=== PATIENT | female | born 1985 | race Caucasian/White ===

== ENCOUNTER 2022-05-20 20:16 | Emergency (ER) | payer BC, SELFPAY ==
[2022-05-20 20:20] VITALS: BP 177/86; PULSE 91; RESP 20; TEMP 36.5; O2SAT 100
--- NOTE | 2022-05-21 00:48 | ED.GENADULT ---
HPI - General Adult General Chief complaint: Unspecified Stated complaint: allergin test today, arm swelling/pain Time Seen by Provider: 05/21/22 00:35 Source: patient Mode of arrival: ambulatory Limitations: no limitations History of Present Illness HPI narrative: This is a 37-year-old female that presents to the emergency department for redness and swelling to her right arm. Reports she had an allergy shot in the arm around 12:00 this afternoon. The arm is painful, red and swollen. Denies fevers. Related Data Allergies Allergy/AdvReac Type Severity Reaction Status Date / Time No Known Allergies Allergy Verified 05/20/22 20:22 Review of Systems Review of Systems: CONSTITUTIONAL: Denies fever SKIN: Reports redness All systems reviewed & are unremarkable except as noted in HPI and below PMFSH Past Medical History Medical History (Updated 05/21/22 @ 00:52 by April Early PA-C) History of environmental allergies Family History Family History (Updated 07/23/16 @ 14:44 by DOCTOR UNKNOWN) Father Hypertension Family history of diabetes mellitus in first degree relative Mother Hypertension Sibling Patient's sister is in good health Grandparent Family history of lupus erythematosus Other Family history of liver disease Social History Social History Smoking status: Never smoker Alcohol intake: current Exam Narrative: GENERAL: Well-appearing, well-nourished, and in no acute distress. HEAD: Normocephalic, atraumatic. EYES: EOMI. EXTREMITIES: Normal range of motion. Right upper arm around the area of allergy shot with moderate edema and erythema. No lymphangitic streaking. Normal radial pulse SKIN: Warm, dry, no rash. NEURO: No focal deficits. Alert and oriented x3. PSYCH: Normal mood and affect Course Vital Signs Vital signs: Vital Signs Temperature 97.7 F 05/20/22 20:20 Pulse Rate 91 05/20/22 20:20 Respiratory Rate 20 05/20/22 20:20 Blood Pressure 177/86 H 05/20/22 20:20 Pulse Oximetry 100 05/20/22 20:20 Oxygen Delivery Room Air 05/20/22 20:20 Temperature 97.7 F 05/20/22 20:20 Pulse Rate 91 05/20/22 20:20 Respiratory Rate 20 05/20/22 20:20 Blood Pressure 177/86 H 05/20/22 20:20 Pulse Oximetry 100 05/20/22 20:20 Oxygen Delivery Room Air 05/20/22 20:20 Medical Decision Making MDM Narrative Medical decision making narrative: Patient presents to the emergency department for right arm redness and swelling after receiving what she reports was another patient's allergy shot. She does have moderate redness and swelling of the area. We will give patient a dose of Decadron. We will also start patient on an antibiotic. 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 She was given warnings to return to the ER Vital Signs Vital Signs: Vital Signs Temperature 97.7 F 05/20/22 20:20 Pulse Rate 91 05/20/22 20:20 Respiratory Rate 20 05/20/22 20:20 Blood Pressure 177/86 H 05/20/22 20:20 Pulse Oximetry 100 05/20/22 20:20 Oxygen Delivery Room Air 05/20/22 20:20 Temperature 97.7 F 05/20/22 20:20 Pulse Rate 91 05/20/22 20:20 Respiratory Rate 20 05/20/22 20:20 Blood Pressure 177/86 H 05/20/22 20:20 Pulse Oximetry 100 05/20/22 20:20 Oxygen Delivery Room Air 05/20/22 20:20 Critical Care Time Critical Care Time Critical Care Time: No Discharge Plan Discharge Clinical Impression: Allergic reaction Qualifiers: Encounter type: initial encounter Qualified Code(s): T78.40XA - Allergy, unspecified, initial encounter Patient Disposition: Home, Self-Care Condition: Stable Instructions: Antibiotic Form, Allergies (ED) Additional Instructions: Return to the emergency department if you experience fever, worsening redness and swelling of your arm, or any other symptoms that are concerning to you Take a Pepcid and Claritin daily. Benadryl as needed for severe itching. Take oral antib
[2022-05-21 00:54] VITALS: BP 146/89; PULSE 78; RESP 18; O2SAT 100
[2022-05-21] MEDS: HYDROcodone/acetaminophen (*CRX) 5-325 MG TABLET 1 TAB PO (01:08)
== END 2022-05-21 01:40 | disposition home or self-care (01) ==
PROVIDERS: Emergency Provider Emergency Medicine
DX: T78.40XA Allergy, unspecified, initial encounter (principal)
CPT/HCPCS: 96372; 99283; A9270; J1100

== ENCOUNTER 2025-02-08 07:50 | Outpatient (CLI) | payer BC, SELFPAY ==
--- OUTSIDE RECORDS SUMMARY | 2025-02-08 07:58 | XMS_ITS | Clinical Summary ---
Author Organization [facility] Address [address] [place] [address] Care Team Providers Care Hr Analyst Name Role Phone Carey Collier Primary Care Pr ovid Source Comments [facility],non-owned Affiliates and Associated Physician Practices is amultiple site organization consisting of ambulatory clinics and hospital sitesin [place], [place], [place] and [place]. This disclosure is being madepursuant to the Care Everywhere program and may not contain all information available regarding this patient. Last updated 18.[facility] Allergies No known active allergies Medications * Be aware that medications may not be up to date on this document. Alwaysverify current medications with the patient. Cetirizine HCl (ZYRTEC PO) Take 10 mg by mouth once daily Active clobetasol (Temovate) 0.05 % solution APPLY TO AFFECTED AREAS OF SCALP ONE TO TWO TIMES DAILY FOR UP TO 2 CONSECUTIVE WEEKS TAKE A SMALL BREAK THEN REPEAT NECESSARY 5 Active buPROPion XL 24hr (Wellbutrin-XL ) 150 MG tablet Take 1 (one) tablet by mouth once daily Active spironolactone (Aldactone) 100 MG tablet Take 1 (one) tablet by mouth once daily Active Tirzepatide (Mounjaro) 7.5 MG/0.5ML SOPN INJECT 1 SYRINGE SUBCUTANEOUSLY ONCE A WEEK 4 Active MAGNESIUM PO Take 2 tablets by mouth once daily Active vitamin ( 19) 29-1 MG TABS Take 1 (one) tablet by mouth once daily Active aspirin-acetam inophen-caffei ne 250-250-65 MG tablet Take 1 (one) tablet by mouth every 4 hours as needed for Headache Active norethindrone 0.35 MG tablet Take 1 (one) tablet by mouth once daily Active Encounters Date Type Department Care Team Description 12/03/2024 Orders Only [facility] [address] [place] [id number] Aravind Jennings MD Elevated bilirubin ; Hemangioma, unspecified site 11/30/2024 6:52 PM CDT - 11/30/2024 11:59 PM CDT Hospital Encounter [facility] - MRI [address] [place] [address] Discharge Disposition: Home or Self Care 11/18/2024 Travel 11/12/2024 Orders Only [facility] [address] [place] [address] Aravind Jennings MD Elevated bilirubin 11/12/[address] [facility] [address] [address] Aravind Jennings MD Results from Last 3 Months Social History Tobacco Use Types Packs/Day Years Used Date Smoking Tobacco: Never Smokeless Tobacco: Never Tobacco Cessation:Counseling Given: Not Answered PHQ-2 Answer Date Recorded Patient Health Questionnaire-2 Score 0 10/26/2024 Hunger Vital Sign Answer Date Recorded Within the past 12 months, y ou worried that your food would run out before you got the money to buy more. Never true 10/26/19 25 Within the past 12 months, t he food you bought just didn't last and you didn't have money to get more. Never true 10/26/2024 Comments No Sex and Gender Information Value Date Recorded Sex Assigned at Not on file Legal Sex Female 9:44 AM ELIGIBILITY SUPERVISOR Gender Identity Not on file Sexual Orientation Not on file Last Filed Vital Signs Vital Sign Reading Time Taken Comments Blood Pressure 122/68 10/26/2024 10:53 AM ELIGIBILITY SUPERVISOR Pulse 77 10/26/2024 10:53 AM ELIGIBILITY SUPERVISOR Temperature 36.7 C (98.1 F) 10/26/2024 10:53 AM ELIGIBILITY SUPERVISOR Respiratory Rate 16 10/15/2019 3:36 PM ELIGIBILITY SUPERVISOR Oxygen Saturation 100% 10/26/2024 10:53 AM ELIGIBILITY SUPERVISOR Inhaled Oxygen Concentration - - Weight 75.1 kg (165 lb 8 oz) 10/26/2024 10:53 AM ELIGIBILITY SUPERVISOR Height 157.5 cm (5' 2 ) 10/26/2024 10:53 AM ELIGIBILITY SUPERVISOR Body Mass Index 30.27 10/26/2024 10:53 AM ELIGIBILITY SUPERVISOR Plan of Treatment Upcoming Encounters Date Type Department Care Team (Late st Contact Info) Description 10/27/2025 3:00 PM ELIGIBILITY SUPERVISOR Documentation [facility] [address] [address] 10/27/2025 3:10 PM ELIGIBILITY SUPERVISOR Office Visit [address] [address] Aravind Jennings MD [address] [address] Health Maintenance Due Date Last Done Comments PAP SMEAR 1985 HIV SCREENING 02/16/2000 HEPATITIS C SCREENING 02/11/2003 DTAP/TDAP/TD VACCINES (1 - Tdap) 02/16/2004 HEPATITIS B VACCINE (1 of 3 - 19+ 3-dose series) 02/16/2004 COVID-19 VACCINE (1 - 2023- season) 2024 INFLUENZA VACCINE (Season Ended) 2025 09/06/2022, 07/19/2020, 06/22/2019, Additional history exists ZOSTER VACCINE (1 of 2) 2035 DEPRESSION SCREENING Completed 10/26/2024 HIB VACCINE Aged Out No longer eligi ble based on patient's age to complete this topic HPV VACCINE Aged Out No longer eligi ble based on patient's age to complete this topic MENINGOCOCCAL (Group B) VACCINE SHARED DECISION-MAKING Aged Out No longer eligible based on patient's age to complete this topic MENINGOCOCCAL GROUPS A/C/Y/W VACCINE Aged Out No longer eligible based on patient's age to complete this topic PNEUMOCOCCAL VACCINE Aged Out No long er eligible based on patient's age to complete this topic Procedures Procedure Name Priority Date/Time Associated Diagnosis Comments MRI ABDOMEN WWO CONTRAST Routine 11/30/2024 8:14 PM CDT Elevated bilirubin from Last 3 Months Results * MRI Abdomen Wwo Contrast (11/30/2024 8:14 PM CDT) Anatomical Region Laterality Modality Abdomen Magnetic Resonan ce 12/01/2024 9:11 AM CDT Impressions 12/01/2024 10:19 AM CDT IMPRESSION: 3.6 cm LOBULATED MASS WITHIN THE HEPATIC DOME HAS SIGNAL CHARACTERISTICS MOST COMPATIBLE WITH A HEMANGIOMA. ONE-TIME MRI FOLLOW-UP IN 6-9 MONTHS IS RECOMMENDED TO ENSURE SIZE STABILITY. IF THE LESION IS STABLE AT THAT TIME, NO FURTHER FOLLOW-UP WOULD BE WARRANTED. NO MR FINDINGS IDENTIFIED TO EXPLAIN THE PATIENT'S HYPERBILIRUBINEMIA. Edited by Marline Louis on 12/01/2024 9:36 AM > Interpreting Provider: Jennifer Shepard MD on 12/01/2024 10:19 AM Narrative 12/01/2024 10:19 AM CDT PROCEDURE: MRI ABDOMEN WWO CONTRAST DATE/TIME OF EXAM: 11/30/2024 8:40 PM CLINICAL INFORMATION: None relevant/not provided if blank. Indication: R17: Unspecified jaundice. Elevated bilirubin. Indeterminate liver mass. COMPARISON: None available. TECHNIQUE: Multiplanar, multisequence MR imaging of the abdomen before and following uneventful administration of intravenous contrast according to standard contrast-enhanced protocol. CONTRAST: GADOXETATE DISODIUM 0.25 MMOL/ML IV SOLN: 10 mL FINDINGS: 2.6 x 3.6 x 2.3 cm lobulated mass involving the hepatic dome at the junction of segments 7 and 8 (series 601 image 33). Lesion exhibits T2 hyperintensity and precontrast T1 hypointensity. There is no diffusion restriction and T2 shine through is noted within the lesion on the ADC map. Following the administration of intravenous gadolinium, there is initial arterial phase mild peripheral nodular enhancement at the anterosuperior margin of the lesion with slightly greater enhancement at 3 minutes. There is washout of contrast media significantly greater than hepatic parenchyma at the 20 minute hepatobiliary phase. The signal characteristics are consistent with a hemangioma. No other mass lesions identified within the liver. Liver normal in size. No hepatic steatosis. Hepatic vasculature widely patent. No bile duct dilatation. Small 4 mm nonenhancing fluid signal lesion within the posterior cortex of the midpole of the right kidney compatible with a simple cyst. This does not require further follow-up. Bilateral kidneys otherwise within normal limits. Signal and morphology of the gallbladder, adrenal glands, pancreas, and spleen are within normal limits. Pancreatic duct normal in diameter. Small and large bowel loops normal in caliber. No sites of bowel wall thickening. No pathologically enlarged lymph nodes. No abnormal sites of marrow signal replacement. Procedure Note Jennifer Shepard MD - 12/01/2024 PROCEDURE: MRI ABDOMEN WWO CONTRAST DATE/TIME OF EXAM: 11/30/2024 8:40 PM CLINICAL INFORMATION: None relevant/not provided if blank. Indication: R17: Unspecified jaundice. Elevated bilirubin. Indeterminate liver mass. COMPARISON: None available. TECHNIQUE: Multiplanar, multisequence MR imaging of the abdomen before andfollowing uneventful administration of intravenous contrast according to standard contrast-enhanced protocol. CONTRAST: GADOXETATE DISODIUM 0.25 MMOL/ML IV SOLN: 10 mL FINDINGS: 2.6 x 3.6 x 2.3 cm lobulated mass involving the hepatic dome at the junction of segments 7 and 8 (series 601 image 33). Lesion exhibits T2 hyperintensity and precontrast T1 hypointensity. There is no diffusion restriction and T2 shine through is noted within the lesion on the ADCmap. Following the administration of intravenous gadolinium, there is initial arterial phase mild peripheral nodular enhancement at the anterosuperior margin of the lesion with slightly greater enhancement at 3 minutes.There is washout of contrast media significantly greater than hepaticparenchyma at the 20 minute hepatobiliary phase. The signal characteristics are consistent with a hemangioma. No other mass lesions identified within the liver. Liver normal in size.No hepatic steatosis. Hepatic vasculature widely patent. No bile duct dilatation. Small 4 mm nonenhancing fluid signal lesion within the posterior cortexof the midpole of the right kidney compatible with a simple cyst. This does not require further follow-up. Bilateral kidneys otherwise within normal limits. Signal and morphology of the gallbladder, adrenal glands, pancreas, and spleen are within normal limits. Pancreatic duct normal in diameter. Small and large bowel loops normal in caliber. No sites of bowel wall thickening. No pathologically enlarged lymph nodes. No abnormal sites of marrow signal replacement. IMPRESSION: 3.6 cm LOBULATED MASS WITHIN THE HEPATIC DOME HAS SIGNAL CHARACTERISTICS MOST COMPATIBLE WITH A HEMANGIOMA. ONE-TIME MRI FOLLOW-UP IN 6-9 MONTHSIS RECOMMENDED TO ENSURE SIZE STABILITY. IF THE LESION IS STABLE AT THATTIME, NO FURTHER FOLLOW-UP WOULD BE WARRANTED. NO MR FINDINGS IDENTIFIED TO EXPLAIN THE PATIENT'S HYPERBILIRUBINEMIA. Edited by Marline Louis on 12/01/2024 9:36 AM > Interpreting Provider: Jennifer Shepard MD on 12/01/2024 10:19 AM us Aravind Jennings MD MR ORDERABLES Final Result from Last 3 Months Insurance ANTHEM ANTHEM Care Teams Hr Analyst Relationship Specialty Start Date End Date Carey Collier PA [address] [place] [id number] PCP - General Physician Card Assembler 10/15/19
--- OUTSIDE RECORDS SUMMARY | 2025-02-08 07:58 | XMS_ITS | CONTINUITY OF CARE DOCUMENT ---
Author Name dora john Address Unknown Organization [facility] Address [address] [place] [address] Phone [phone] Care Team Providers Care Golf Professional Name Role Phone Jneny Chapa MD Unavailable Jenny Chapa MD Unavailable [phone] INSURANCE PROVIDERS Payer name Policy type / Coverage type Angie red democrat ID [facility] [id number] Other [id number]
--- OUTSIDE RECORDS SUMMARY | 2025-02-08 07:59 | XMS_ITS | Patient Health Record ---
Author Organization [facility] ([address]) Address [address] [place] [address] Care Team Providers Care Industrial Sales Manager Name Role Phone Jayla Petty Unavailable [phone] [employer], Provider Unavailable Unavailab le Allergies No Known Allergies Reason For Referral No Information Medications Medication SIG (Take, Route, Frequency, Duration) Notes Start Date End Date Status AUVI -Q 0.3 mg as directed intramuscularly once for 30 day(s) Active ZYRTEC 10 mg 1 tab(s) orally once a day Active SIT (TRADITIONAL) VARIABLE PER SCHEDULE SC PER SCHEDULE for TO BE DETERMINED *Please review for potential replacement for e-prescription and drug interaction check* Active Auvi-Q 0.3 MG/0.3ML as directed intramuscularly once for 30 day(s) Active ZyrTEC Allergy 10 MG 1 tab(s) orally once a day Active Immunizations Vaccine Route Administration Date Status Comme nts NOC Influenza-Fluzone Unknown 07/19/2020 Administered Social History Tobacco Use: Social History Observation Description Date Details (start date - stop date) Never Smoker NA - NA Smoking Smart Form: Question Answer Notes Are you a: never smoker Problems Problem Type SNOMED Code ICD Code Onset Dates Problem Status W/U Status Risk Notes Problem Chronic allergic conjunctivitis (91576109) Other chronic allergic conjunctivitis (H10.45) Active confirmed Problem Allergic rhinitis caused by pollen (disorder) (90549719) Allergic rhinitis due to pollen (J30.1) Active confirmed Problem Allergic rhinitis caused by animal hair and dander (466069196994166) Allergic rhinitis due to animal (cat) (dog) hair and dander (J30.81) Active confirmed Problem Allergic rhinitis (93416411) Other allergic rhinitis (J30.89) Active confirmed Problem Chronic rhinitis (52736005) Chronic rhinitis (J31.0) Active confirmed Problem Mild intermittent asthma (629579739) Mild intermittent asthma, uncomplicated (J45.20) Active confirmed Problem Uncomplicated mild persistent asthma (056477115) Mild persistent asthma, uncomplicated (J45.30) Active confirmed Problem Uncomplicated moderate persistent asthma (206357810) Moderate persistent asthma, uncomplicated (J45.40) Active confirmed Problem Uncomplicated severe persistent asthma (685019543) Severe persistent asthma, uncomplicated (J45.50) Active confirmed Problem Allergic rhinitis caused by pollen (disorder) (40669374) Allergic rhinitis due to pollen (J30.1) Active confirmed Problem Allergic rhinitis caused by animal hair and dander (310753923948959) Allergic rhinitis due to animal (cat) (dog) hair and dander (J30.81) Active confirmed Problem Allergic rhinitis (38989325) Other allergic rhinitis (J30.89) Active confirmed Problem Chronic allergic conjunctivitis (30989687) Other chronic allergic conjunctivitis (H10.45) Active confirmed Encounters Encounter Location Date Provider Diagnosis [address] [address] 03/06/2024 Provider Ashley Allergic rhinitis due to pollen J30.1 Assessments Encounter Date Diagnosis (ICD Code) Assessment Notes Treatment Notes Treatment Clinical Notes Section Notes 03/06/2024 Allergic rhinitis due to pollen (ICD-10 - J30.1) Plan Of Treatment No Information Insurance Providers Payer Name Payer Address Payer Phone Subscriber Number Group Number Insured Name Patient Relationship to Insured Coverage Start Date Coverage End Date [facility] [id number] [place] [address] [id number] Meagan Ricks Self - patient is the insured Medical (General) History Medical History History ICD Code Allergic rhinitis due to pollen J30.1 Surgical History Surgery Date(Month/Year) tonsillectomy
--- OUTSIDE RECORDS SUMMARY | 2025-02-08 07:59 | XMS_ITS | Clinical Summary ---
Author Organization [facility] Address [address] [place] [phone] Care Team Providers Care Cocoa Press Operator Name Role Phone Juankedar Carey OSHEA Primary Care Pr ovider Allergies No known active allergies Medications fluticasone propionate (FLONASE) 50 mcg/actuation nasal spray Administer 2 sprays into affected nostril(s) daily 9 Active meclizine (ANTIVERT) 25 mg tablet Take 25 mg by mouth 2 times daily 9 Active cetirizine (ZyrTEC) 10 mg tablet Take by mouth Active Active Problems Problem Noted Date Diagnosed Date Vestibular migraine 08/16/2019 Sensory hearing loss 06/24/2014 Medical History Medical History Date Comments Vertigo Seasonal allergies Family History Medical History Relation Name Comments Ovarian cancer Mother Ovarian cance r - (Added by TW Conv) Relation Name Status Comments Mother Social History Tobacco Use Types Packs/Day Years Used Date Smoking Tobacco: Never Smokeless Tobacco: Never Alcohol Use Standard Drinks/Week Comments Yes 0 (1 standard drink = 0.6 oz pur e alcohol) Personal Safety Answer Date Recorded Getting School Help Needed Not on file 12/04 Comments Unknown Sex and Gender Information Value Date Recorded Sex Assigned at Not on file Legal Sex Female 6:52 AM FISH PITCHER Gender Identity Not on file Sexual Orientation Not on file Obstetrics History Last Filed Vital Signs Vital Sign Reading Time Taken Comments Blood Pressure 118/77 08/07/2018 3:25 PM FISH PITCHER Pulse 70 08/07/2018 3:25 PM FISH PITCHER Temperature 37.1 C (98.7 F) 08/07/2018 11:44 AM FISH PITCHER Respiratory Rate 20 08/07/2018 3:25 PM FISH PITCHER Oxygen Saturation 100% 08/07/2018 11:44 AM FISH PITCHER Inhaled Oxygen Concentration - - Weight 90.7 kg (200 lb) 08/07/2018 11:44 AM FISH PITCHER Height 160 cm (5' 3 ) 08/07/2018 11:44 AM FISH PITCHER Body Mass Index 35.43 08/07/2018 11:44 AM FISH PITCHER Plan of Treatment Not on file Insurance [employer] Care Teams Cocoa Press Operator Relationship Specialty Start Date End Date Carey Ellison PA PCP - General Physician Goat Driver 08/12/19
--- OUTSIDE RECORDS SUMMARY | 2025-02-08 07:59 | XMS_ITS | Encounter Summary ---
Author Organization [facility] Address [address] [place] [address] Care Team Providers Care Street Photographer Name Role Phone Unavailable Primary Care Provider Unavailabl e Encounter Details Date Type Department Care Team (Late st Contact Info) Description 10/03/2007 Outpatient Historical [facility], Authorized P NO ADDRESS ON FILE Daysi Okeefe Jr., MD NO ADDRESS ON FILE Social History Tobacco Use Types Packs/Day Years Used Date Smoking Tobacco: Never Assessed Comments Unknown Sex and Gender Information Value Date Recorded Sex Assigned at Not on file Legal Sex Female 5:29 AM [employer] MANA[employer] Gender Identity Not on file Sexual Orientation Not on file documented as of this encounter Plan of Treatment Not on file documented as of this encounter Procedures Procedure Name Priority Date/Time Associated Diagnosis Comments SPECIMEN HOLD, BLOOD Routine 10/03/2007 3:00 AM [employer] TECH[employer]ICAL MANAGER PT AND APTT Routine 10/03/2007 3:00 AM [employer] TECHNICAL MANAGER CBC WITH DIFFERENTIAL Routine 10/03/2007 3:00 AM [employer] TECHNICAL MANAGER CBC WITH DIFFERENTIAL Routine 10/03/2007 3:00 AM [employer] TECHNICAL MANAGER documented in this encounter Results * (ABNORMAL) CBC WITH DIFFERENTIAL (10/03/2007 3:00 AM [employer] TECHNICAL MANAGER) NEUTROPHILS 92(H) 45 - 70 % INTERFAC E SYSTEM LYMPHOCYTES 6(L) 16 - 45 % INTERFAC E SYSTEM MONOCYTES 2(L) 3 - 13 % INTERFACE SYSTEM EOSINOPHILS 0 0 - 7 % INTERFAC E SYSTEM BASOPHILS 0 0 - 2 % INTERFACE SYSTEM NEUTROPHIL ABSOLUTE 15.57(H) 1.90 - 7.00 K/uL INTERFACE SYSTEM LYMPHOCYTE ABSOLUTE 1.05 0.70 - 4.50 K/uL INTERFACE SYSTEM MONOCYTE ABSOLUTE 0.28 0.10 - 1.30 K/uL INTERFACE SYSTEM EOSINOPHIL ABSOLUTE 0.00 0.00 - 0.70 K/uL INTERFACE SYSTEM BASOPHILS ABSOLUTE 0.03 0.00 - 0.20 K/uL INTERFACE SYSTEM 10/03/2007 3:00 AM [employer] TECHNICAL MANAGER Result [facility] Jimmy Caal MD HEMATOLOGY ORDERABLES Edited Performing Organization Address [facility] Phone Number INTERFACE SYSTEM Refer to clinic/hospital department * (ABNORMAL) CBC WITH DIFFERENTIAL (10/03/2007 3:00 AM [employer] TECHNICAL MANAGER) WBC 16.9(H) 4.0 - 9.8 K/uL INTERFACE SYSTEM RBC 3.99 3.90 - 4.90 M/uL INTERFACE SYSTEM HEMOGLOBIN 12.9 11.8 - 14.8 g/dL INTERFACE SYSTEM HEMATOCRIT 36.6 35.5 - 44.0 % INTERFACE SYSTEM MCV 91.7 82.0 - 99.0 fL INTERFACE SYSTEM MCH 32.3 27.2 - 32.6 pg INTERFACE SYSTEM MCHC 35.2 31.5 - 35.5 % INTERFACE SYSTEM RDW 12.2 11.5 - 14.5 % INTERFACE SYSTEM RDW-STDEV 40.9 37.1 - 48.7 fL INTERFACE SYSTEM PLATELETS 196 140 - 350 K/uL INTERFACE SYSTEM MPV 11.0 9.3 - 12.4 fL INTERFACE SYSTEM 10/03/2007 3:00 AM [employer] TECHNICAL MANAGER Result [facility] Jimmy Caal MD HEMATOLOGY ORDERABLES Edited Performing Organization Address [facility] Phone Number INTERFACE SYSTEM Refer to clinic/hospital department * SPECIMEN HOLD, BLOOD (10/03/2007 3:00 AM [employer] TECHNICAL MANAGER) SPECIMEN/HELD FOR: Blood/7 days INTERFACE SYSTEM 10/03/2007 3:00 AM [employer] TECHNICAL MANAGER Result [facility] Jimmy Caal MD CHEMISTRY ORDERABLES E dited Performing Organization Address [facility] Phone Number INTERFACE SYSTEM Refer to clinic/hospital department * PT AND APTT (10/03/2007 3:00 AM [employer] TECHNICAL MANAGER) PROTIME 13.7 12.7 - 15.1 Seconds INTERFACE SYSTEM INR 1.0 0.9 - 1.1 INTERFACE SYSTEM Comment: INR Therapeutic Range: Adult: 2.0 - 3.0 for pulmonary embolism or prophylaxis against venous thrombosis or systemic embolization. 2.0 - 3.0 for patients with tissue heart valves. 2.5 - 3.5 for patients with mechanical heart valves or post HI. Pediatric (12 years and under): 1.5 - 3.0 Although the target range in children is not well established , INR values of 1.5 - 3.0 are recommended for most patients. Higher values have been used in children with prosthetic cardiac valves and hereditary clotting disorders. (<3 days) therapeutic ranges have not been established. PTT 25.1 24.4 - 36.4 Seconds INTERFACE SYSTEM Comment: PTT Therapeutic Range: Heparin Level PTT (seconds) <0.10 units/mL <53 0.10 - 0.30 units/mL 53 - 67 0.30 - 0.70 units/mL* 67 - 95* 0.70 - 1.00 units/mL 95 - 116 *corresponds to therapeutic range for unfractionated heparin 10/03/2007 3:00 AM [employer] TECHNICAL MANAGER us Jimmy Caal MD HEMATOLOGY ORDERABLES Edited INTERFACE SYSTEM Refer to clinic/hospital department documented in this encounter Visit Diagnoses Not on filedocumented in this encounter
--- OUTSIDE RECORDS SUMMARY | 2025-02-08 07:59 | XMS_ITS ---
Author Organization [facility] [place] ([address]) Address [address] [place] [address] Care Team Providers Care Enrober Tender Name Role Phone Jayla Petty Unavailable [phone] [facility], Provider Unavailable Unavailab le [facility] Encounter Medications Medication SIG (Take, Route, Frequency, Duration) Notes Start Date End Date Status SIT (TRADITIONAL) VARIABLE PER SCHEDULE SC PER SCHEDULE for TO BE DETERMINED *Please review for potential replacement for e-prescription and drug interaction check* Active Auvi-Q 0.3 MG/0.3ML as directed intramuscularly once for 30 day(s) Active ZyrTEC Allergy 10 MG 1 tab(s) orally once a day Active Encounters Encounter Location Date Provider Diagnosis [address] [id number] 03/06/2024 Provider [facility] Allergic rhinitis due to pollen J30.1 Assessments Encounter Date Diagnosis (ICD Code) Assessment Notes Treatment Notes Treatment Clinical Notes Section Notes 03/06/2024 Allergic rhinitis due to pollen (ICD-10 - J30.1) Plan Of Treatment Medication Medication Name Sig Start Date Stop Date Notes SIT (TRADITIONAL) VARIABLE PER SCHEDULE SC PER SCHEDULE for TO BE DETERMINED *Please review for potential replacement for e-prescription and drug interaction check* Auvi-Q 0.3 MG/0.3ML as directed intramuscularly once for 30 day(s) Progress Notes * Meagan RICKSDOB:1985 (39 yo F)Acc No.[id number]:03/06/2024 Patient: Meagan GRANT Provider: Maliha Justice :1985 A ge:39 Y S ex:Female Date:03/06/2024 Address:[address] [place], [place] [id number] Subjective: * Chief Complaints: * 1 . [facility]. * Medical History: * Medications: T aking ZyrTEC Allergy 10 MG Tablet 1 tab(s) orally once a day Objective: * Vitals: Assessment: * Assessment: 1. A llergic rhinitis due to pollen - J30.1 (Primary) Plan: * Treatment: * Billing Information: * Visit Code: * Procedure Codes: * Electronic signature of Prov teganr [facility] on 02/08/2025 at 07:59 AM CDT Sign off status: Pending * Provider: Maliha Justice Date: 03/06/2024 Generated for Deidre duenas/Hemalatha/Laquitaitting on: 02/08/2025 07:59 AM CDT
--- OUTSIDE RECORDS SUMMARY | 2025-02-08 07:59 | XMS_ITS | Data Portability ---
Author Organization [place] - [facility] [employer], Main Office Address [address] [place] [address] Assessment Encounter Date Assessment Date Assessment LastModified by Organization Details LastModified Time 06/02/2023 06/02/2023 WWE- BRIEFCASE SEWER- [facility] Call office if worse, ER if life-threatening illness RTC in 4 months and PRN She voices understanding of plan and agrees [email or web address] Not available 06/02/2023 16:33:55 02/10/2024 02/10/2024 This note is dictated and transcribed by [employer] Direct Software. Voip Technician variances may occur. Despite proofreading, typographical errors may occur. Occasional wrong-word or '[id number]' substitutions may have occurred due to the inherent limitations of voice recording. Read the chart carefully and recognize, using context, where substitutions have occurred. [email or web address] Not available 02/10/2024 14:07:28 06/14/2024 06/14/2024 12/13/2023: Folate 5.4 T. bili 1.6 A1C 5.1 Not available 06/14/2024 16:00:33 12/13/2024 12/13/2024 12/13/2023: Folate 5.4 T. bili 1.6 A1C 5.1 09/23/2024: T bili 2.2 Not available 12/13/2024 18:30:48 Plan of Treatment Reminders Order Date Submit Date Provider Last Modified By Organization Details Last Modified Time Details Appointments Any 15 2024 04:30P Geri hale MD Not available Not available Not available Lab vitamin D, 25-hydrox y, total, serum 2024 025 [email or web address], [address], [address], [place], [address], 12/13/2024 18:23:02 HbA1c (hemoglob in A1c), blood 2024 025 [facility], [address], [address], [place], [address], 12/13/2024 18:23:01 microalbu min, urine 2024 025 [facility], [address], [address], [place], [address], 12/13/2024 18:23:01 CBC w/ auto diff 2024 025 [facility], [address], [address], [place], [address], 12/13/2024 18:23:01 CMP, serum or plasma 2024 025 [email or web address], [address], [address], [place], [address], 12/13/2024 18:23:01 TSH + free T4, serum 2024 025 [facility], [address], [address], [place], [address], 12/13/2024 18:23:01 lipid panel, serum 2024 025 [facility], [address], [address], [place], [address], 12/13/2024 18:23:02 vitamin B12 + folate, serum or blood 2024 025 [facility], [address], [address], [place], [address], 12/13/2024 18:23:02 vitamin D, 25-hydrox y, total, serum 2023 024 NA[facility], [address], [address], [place], [address], 09/29/2024 18:25:39 HbA1c (hemoglob in A1c), blood 2023 024 [facility], [address], [address], [place], [address], 09/29/2024 18:25:39 microalbu min, urine 2023 024 [facility], [address], [address], [place], [address], 12/15/2024 08:13:39 CBC w/ auto diff 2023 024 [facility], [address], [address], [place], [address], 09/29/2024 18:25:39 CMP, serum or plasma 2023 024 [facility], [address], [address], [place], [address], 09/29/2024 18:25:38 TSH + free T4, serum 2023 024 ED[facility], [address], [address], [place], [address], 09/29/2024 18:25:38 lipid panel, serum 2023 024 [facility], [address], [address], [place], [address], 09/29/2024 18:25:38 vitamin B12 + folate, serum or blood 2023 024 NAH[facility], [address], [address], [place], [address], 09/29/2024 18:25:39 vitamin D, 25-hydrox y, total, serum 2023 024 [place] [address] [facility], [address], [address], [place], [address], 06/14/2024 09:40:58 HbA1c (hemoglob in A1c), blood 2023 024 [email or web address] [facility], [address], [address], [place], [address], 06/14/2024 09:40:57 microalbu min, urine 2023 024 [email or web address] [facility], [address], [address], [place], [address], 06/14/2024 09:40:58 CBC w/ auto diff 2023 024 [email or web address], [address], [address], [place], [address], 06/14/2024 09:40:58 CMP, serum or plasma 2023 024 [email or web address], [address], [address], [place], [address], 06/14/2024 09:40:58 TSH + free T4, serum 2023 024 [email or web address], [address], [place], [address], 06/14/2024 09:40:58 lipid panel, serum 2023 024 [email or web address], [address], [place], [address], 06/14/2024 09:40:58 vitamin B12 + folate, serum or blood 2023 024 EDMOND [facility], [address], [address], [place], [address], 12/16/2023 12:28:46 lipid panel, serum 2022 023 [place] [address] [facility], [address], [address], [place], [address], 01/13/2024 08:38:41 CBC w/ auto diff 2022 023 [place] [address] [facility], [address], [address], [place], [address], 01/13/2024 08:38:41 CMP, serum or plasma 2022 023 [place] [address] [facility], [address], [address], [place], [address], 01/13/2024 08:38:41 HbA1c (hemoglob in A1c), blood 2022 023 [facility], [address], [address], [place], [address], 01/13/2024 08:38:41 microalbu min/creat inine, mass ratio, urine 2022 023 [facility], [address], [address], [place], [address], 01/13/2024 08:38:41 Referral podiatris t referral - Please call patient to schedule an appointme nt. Thank you. 2024 025 NAHOMY ASTORGAM, [address] [facility], [facility] [address], [place], [address], 12/15/2024 09:08:34 podiatris t referral 2023 024 [email or web address] 2 Humza Tamayo DPM, [address], [address], [place], [address], 12/13/2024 08:27:05 podiatris t referral 2023 024 [email or web address] Humza Tamayo DPM, [address], [address], [place], [address], 07/05/2024 10:01:34 Procedures None recorded. Surgeries None recorded. Imaging None recorded. Medication Orders bupropion HCl XL 150 mg 24 hr tablet, extended release [address] [facility], [address], [place], [place], [id number], 12/13/2024 18:00:06 bupropion HCl XL 150 mg 24 hr tablet, extended release [address] [facility], [address], [place], [place], [id number], 12/13/2024 18:00:06 metformin ER 500 mg tablet,ex tended release 24 hr [address] [facility]597, [address], [id number], 12/13/2024 18:01:24 bupropion HCl XL 150 mg 24 hr tablet, extended release [address] [facility]92, [address], [id number], 12/13/2024 18:00:06 Mounjaro 7.5 mg/0.5 mL subcutane ous pen injector 2022 023 [facility], [address], [place], [place], [id number], 06/02/2023 16:46:19 metformin ER 500 mg tablet,ex tended release 24 hr 2022 023 [email or web address] [facility]50295, [address], [place], [place], [id number], 12/13/2024 18:01:24 Patient TargetsNo targets recorded. Patient Instructions Encounter Date Encounter Id Patient Instructions Last Modified By Organization Details Last Modified Time 12/08/2023 [id number] diabetic eye exam* [email or web address] Not available 06/07/2024 11:04:47 02/10/2024 [id number] diabetic foot care education [email or web address] Not available 02/10/2024 15:07:04 diabetic neuropathy education [email or web address] Not available 02/10/2024 15:07:04 Learning About Carbohydrate (Carb) Counting and Eating Out When You Have Diabetes [email or web address] Not available 02/10/2024 15:07:04 06/14/2024 [id number] diabetic eye exam* [email or web address] Not available 12/13/2024 08:26:54 12/13/2024 [id number] diabetic eye exam* [email or web address] Not available 12/22/2024 10:15:24 Reason for Referral 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 Thank you. Referring Physician: Bryan Spencer Internal Medicine, Encounter Date: 12/13/2024 Results Created Date Observation Date Name Description Value Unit Range Abnormal Flag Note LastModifiedBy Organization Detail LastModifiedTime 10/12/19 25 10/12/2024 US, abdom en, limit ed [facility] [address], [place] [address] Audrey t Name: LILIANA MARIE Access ion #: [id number] Sex: F : 1984 9 Locati on: RAD Attend ing Physic robert: ZAK CENTENO MURTUZ A Orderi ng Physic robert: ALONSO SALINASTUZ A Exam Date: 025 1:15 PM Exam Name: US ABDOME N SINGLE ORGAN Admitt ing Diagno sis(es ): RADIOL OGY REPORT - FINAL EXAM: US ABDOME N SINGLE ORGAN HISTOR Y: elevat ed serum biliru bin 39-yea r-old female with elevat ed biliru bin. COMPAR JOSE: None availa ble. TECHNI QUE: Right upper quadra nt ultras ound was perfor med. FINDIN GS: No gallst ones, gallbl adder wall thicke edin, or perich olecys tic free fluid. The patien t was not tender to transd ucer pressu re over the gallbl adder. No intrah epatic biliar y ductal dilata tion. There is a right hepati c echoge alyssa mass with smooth margin s measur ing up to 3.[address] dimens ion. There is hepato petal portal venous color Dopple r flow. The common duct measur es 3.5 mm in diamet er. The partia lly visual ized pancre as is unrema rkable . The Page 1 of 2 [facility] Audrey t Name: LILIANA MARIE Access ion #: [id number] Sex: F : 1984 9 Exam Date: 025 1:15 PM Exam Name: US ABDOME N SINGLE ORGAN Admitt ing Diagno sis(es ): intrah epatic portio n of the IVC is patent . No upper abdomi nal aortic ectasi a. The right kidney measur es 10.2 cm in length and is normal in appear ance. IMPRES GÉNESIS: 1. 3.5 cm right hepati c echoge alyssa mass may repres ent a mis ioma or other etiolo gy. Recomm end follow -up multip hasic pre and post-c ontras t CT scan of the liver for better charac teriza tion on a noneme rgent basis. 2. Otherw ise unrema rkable right upper quadra nt ultras ound. Create d and electr onical ly signed by: Joon nickerson MD Signed Date: 1:54 PM (CT) Dictat ed by: Joon nickerson MD DD: 025 1:54 PM (CT) DT: 025 1:54 PM (CT) Page 2 of 2 [facility] (Imaging) [address] [place], [address], 10/12/2024 14:56:55 10/12/19 25 10/12/2024 US, liver No observ ation record ed. [facility] [address] [place], [address], 10/12/2024 14:59:08 12/21/19 25 12/01/2024 MRI, abdom en, w/wo contr ast No observ ation record ed. NAHOMY Not Available 2024 17:33:11 Result Notes None recorded. Problems Name Problem SNOMED Code Status Onset Date Resolution Date Notes Provider Name and Address Organization Details Recorded Time Amenorrhea 27130982 Completed Not Available [facility] 3 08:08:55 Suppressio n of menstruati on Completed Not Available [facility] 3 08:08:55 Leukorrhea 997557540 Completed Not Available [facility] 3 08:08:55 Vaginal discharge 349825117 Completed Not Available [facility] 3 08:08:56 Fibrocysti c disease of breast 70848515 Active Not Available [facility] 3 08:08:56 Morning sickness 74802870 Completed Not Available [facility] 3 08:08:56 Vulvitis 52739958 Completed Not Available [facility] 3 08:08:56 Breast lump 66562516 Active Not Available [facility] 3 08:08:56 Allergic rhinitis 52101242 Active 2022 SHENG Nieto [address], [address], [place], [address] , [employer] 3 19:59:26 Elevated blood-pres sure reading without diagnosis of hypertensi on 075864202 Active 2022 ISH NietoC [address], [address], [place], [address] , [employer] 3 19:59:33 Type 2 diabetes mellitus without complicati on 339524276 Active 2022 SHENG Nieto [address], [address], [place], [address] , [employer] 3 19:59:58 Obesity 786586776 Active 2022 SHENG Nieto [address], [address], [place], [address] , [employer] 3 20:00:02 Unable to concentrat e 49483972 Active 2022 SHENG Nieto [address], [address], [place], [address] , [employer] 3 16:59:49 Essential hypertensi on 76453053 Active 2023 Bryan ibarra MD [address], [address], [place], [address] , [employer] 4 15:55:03 Hyperlipid emia 29983004 Active 2023 Bryan ibarra MD [address], [address], [place], [address] , [employer] 4 15:55:11 Environmen anamaria allergy 135962611 Active 2023 Bryan ibarra MD [address], [address], [place], [address] , [facility] 4 15:55:44 Vitamin D deficiency 14591731 Active 2023 Bryan ibarra MD [address], [address], [place], [address] , [facility] 4 16:18:53 Serum vitamin B12 below reference range 627827154 Active 2023 Bryan ibarra MD [address], [address], [place], [address] , [facility] 4 16:19:04 Loss of hair 984148243 Active 2023 Radha Betancourt MA null, [place] - [facility] 4 14:27:03 Attention deficit hyperactiv ity disorder 267885671 Active 2023 Ml Sanchez null, [place] - [facility] 4 09:24:30 Migraine 84463598 Active 2023 Ml Sanchez null, [place] - [facility] 4 09:24:48 Diabetes mellitus 20704102 Active 2023 Humza Tamayo DPM [address], [address], [place], [address] , [facility] 4 14:07:20 Serum bilirubin above reference range 107473595 Active 2024 Alex Lanza LPN null, [place] - [facility] 5 16:37:53 Hyperbilir ubinemia 38299337 Active 2024 Bryan ibarra MD [address], [address], [place], [address] , [facility] 5 12:20:00 Liver hematoma 222724590 Active 2024 RICO Vides null, [place] - [facility] 18:03:07 Problem Notes None recorded. Procedures Surgical History Date Name Laterality Status Provider Name and Address Organization Details Recorded Time 08/27/20 Date of Last Pap Smear completed Not Available [facility] 11/20/2022 08:06:21 Tonsillectomy completed Not Available [facility] 11/20/2022 08:06:22 Bladder completed Not Available [facility] 09/2022 08:06:22 dilation of cervix uteri and curettage of uterus for removal of missed miscarriage completed Ml Dodd [facility] [facility] 01/28/2024 09:28:00 Oral surgery procedure completed Ml Dodd [facility] 01/28/2024 09:28:17 Imaging Results Imaging Date Name Status LastModified by Organiz ation Details LastModified Time 10/12/2024 US, abdomen, limited active [facility] (Imaging) [address] [place], [address], 10/12/2024 14:56:55 10/12/2024 US, liver active [facility] [address] [place], [address], 10/12/2024 14:59:08 12/01/2024 MRI, abdomen, w/wo contrast active EDMOND Information not available 12/20/2024 17:33:11 Procedure Notes None recorded. Medical Equipment None Reported. Allergies Allergen ID Allergen Name Allergen Category Reaction Reaction Severity Criticality Documentation Date Start Date Code Code System Note Provider Name and Address Organization Details Recorded Time 18404 tree and shrub pollen environme nt,medica tion Not available Not available Not available 01/28/2024 49008 UNK Ml chavarria [facility] [employer] [facility] 4 09:23:48 34969 house dust mite environme nt Not available Not available Not available 01/28/2024 [id number] UN Ml chavarria [facility] [employer] [facility] 4 09:24:01 Medications Name Sig Start Date Stop Date Status Note LastModified by Organization Details LastModified Time amoxicilli n 500 mg capsule 01/07 completed Not Available Not Available Not Available vitamin E 670 mg (1,000 unit) capsule Take 1000 units by oral route for 90 days. active Not Available Not Available No t Available prednisone 10 mg tablet 09/06 completed Not Available Not Available Not Available doxycyclin e hyclate 100 mg capsule Take 1 capsule twice a day by oral route. active Not Available Not Available No t Available clindamyci n HCl 300 mg capsule active Not Available Not Available N ot Available azithromyc in 250 mg tablet active Not Available Not Available Not Available benzonatat e 200 mg capsule TAKE 1 CAPSULE BY MOUTH EVERY 8 HOURS NEEDED FOR COUGH 08/27 completed Not Available Not Available Not Available hydrocodon e 5 mg-acetami nophen 325 mg tablet TAKE 1 TABLET BY MOUTH EVERY 6 HOURS NEEDED 09/06 completed Not Available Not Available Not Available metronidaz ole 0.75 % (37.5 mg/5 gram) vaginal gel INSERT 1 APPLICAT ORFUL VAGINALL Y DAILY AT BEDTIME FOR 5 DAYS 09/06 completed Not Available Not Available Not Available ondansetro n HCl 4 mg tablet 01/07 completed Not Available Not Available Not Available prednisone 20 mg tablet TAKE 3 TABLETS BY MOUTH EVERY DAY FOR 5 DAYS 09/06 completed Not Available Not Available Not Available spironolac tone 100 mg tablet TAKE 1 TABLET BY MOUTH ONCE DAILY WITH A FULL GLASS OF WATER active Not Available Not Available No t Available Zyrtec 10 mg tablet Take 1 tablet every day by oral route. 01/27 completed Not Available Not Available Not Available metronidaz ole 500 mg tablet TAKE 1 TABLET BY MOUTH EVERY 12 HOURS FOR 7 DAYS 12/13 completed Not Available Not Available Not Available Terazol 3 0.8 % vaginal cream Insert 1 applicat orful every day by vaginal route for 3 days. 11/04 completed Not Available Not Available Not Available sulfametho xazole 800 mg-trimeth oprim 160 mg tablet 12/23 completed Not Available Not Available Not Available amoxicilli n 500 mg tablet TAKE 1 TABLET BY MOUTH EVERY 12 HOURS 12/07 completed Not Available Not Available Not Available famotidine 20 mg tablet TAKE 1 TABLET BY MOUTH EVERY 12 HOURS FOR 5 DAYS 09/06 completed Not Available Not Available Not Available meclizine 25 mg tablet TK 1 T PO TID PRF DIZZINES S 01/07 completed Not Available Not Available Not Available cephalexin 500 mg capsule TAKE 1 CAPSULE BY MOUTH EVERY 8 HOURS FOR 5 DAYS 09/06 completed Not Available Not Available Not Available naproxen sodium 550 mg tablet 12/23 completed Not Available Not Available Not Available oseltamivi r 75 mg capsule 12/23 completed Not Available Not Available Not Available tobramycin 0.3 % eye drops 08/27 completed Not Available Not Available Not Available polymyxin B sulfate 10,000 unit-trime thoprim 1 mg/mL eye drops INSTILL 1 DROP IN LEFT EYE EVERY 3 HOURS FOR 7 DAYS DIRECTED 09/06 completed Not Available Not Available Not Available azelastine 137 mcg (0.1 %) nasal spray USE 2 SPRAYS IN EACH NOSTRIL TWICE DAILY NEEDED 09/06 completed Not Available Not Available Not Available methylpred nisolone 4 mg tablets in a dose pack TK UTD 01/19 completed Not Available Not Available Not Available norethindr one (contracep tive) 0.35 mg tablet TAKE 1 TABLET BY MOUTH ONCE DAILY active Not Available Not Available No t Available clobetasol 0.05 % scalp solution APPLY SOLUTION TOPICALL Y TO AFFECTED AREAS OF SCALP ONCE DAILY TO TWICE DAILY FOR UP TO 2 CONSECUT SONIA WEEKS TAKE A SMALL BREAK THEN REPEAT NECESSAR Y active Not Available Not Available No t Available cefdinir 300 mg capsule TAKE 1 CAPSULE BY MOUTH TWICE DAILY 09/06 completed Not Available Not Available Not Available fluticason e propionate 50 mcg/actuat ion nasal spray,susp ension SHAKE LIQUID AND USE 2 SPRAYS IN EACH NOSTRIL EVERY DAY NEEDED 09/06 completed Not Available Not Available Not Available metformin ER 500 mg tablet,ext ended release 24 hr TAKE 1 TABLET BY MOUTH EVERY DAY 12/13 completed pt never got refill so she quit taking it Not Available Not Available Not Available naproxen 500 mg tablet active Not Available Not Available Not Available metoclopra mide 10 mg tablet Take 1 TABLET 4 TIMES A DAY by oral route as necessar y for nausea active Not Available Not Available No t Available amoxicilli n 875 mg-potassi um clavulanat e 125 mg tablet TAKE 1 TABLET BY MOUTH EVERY 12 HOURS FOR 10 DAYS 08/27 completed Not Available Not Available Not Available Lessina 0.1 mg-20 mcg tablet TAKE 1 TABLET BY MOUTH EVERY DAY 09/06 completed Not Available Not Available Not Available bupropion HCl XL 150 mg 24 hr tablet, extended release TAKE 1 TABLET BY MOUTH ONCE DAILY IN THE MORNING 12/13 completed pt weaned off Not Available Not Available Not Available Benadryl Allergy prn 09/06 completed Not Available Not Available Not Available Se- 19 (with docusate) 29 mg iron-1 mg-25 mg tablet TK 1 T PO D active Not Available Not Available No t Available Gianvi (28) 3 mg-0.02 mg tablet Take 1 tablet every day by oral route. 01/19 completed Not Available Not Available Not Available Nexplanon 68 mg subdermal implant 12/23 completed Not Available Not Available Not Available Auvi-Q 0.3 mg/0.3 mL injection, auto-injec tor USE DIRECTED 12/07 completed Not Available Not Available Not Available 19 (with docusate) 29 mg iron-1 mg-25 mg tablet Take 1 tablet by oral route. active Not Available Not Available No t Available Ozempic 0.25 mg or 0.5 mg (2 mg/1.5 mL) subcutaneo us pen injector 12/07 completed Not Available Not Available Not Available Flucelvax Quad 60 mcg (15 mcg x 4)/0.5 mL IM suspension ADM 0.5ML IM UTD 09/06 completed Not Available Not Available Not Available Afluria Quad 60 mcg (15 mcg x 4)/0.5 mL intramuscu lar susp. 09/06 completed Not Available Not Available Not Available Mounjaro 7.5 mg/0.5 mL subcutaneo us pen injector INJECT 7.5MG SUB-Q ONCE A WEEK 2024 active Not Available Not Available Not Avai lable Mounjaro 5 mg/0.5 mL subcutaneo us pen injector ADMINIST ER 5 MG UNDER THE SKIN EVERY WEEK 06/02 completed Not Available Not Available Not Available Mounjaro 2.5 mg/0.5 mL subcutaneo us pen injector Inject by subcutan eous route for 28 days. 10/14 completed Not Available Not Available Not Available Ozempic 0.25 mg or 0.5 mg (2 mg/3 mL) subcutaneo us pen injector INJECT 0.5 MG UNDER THE SKIN DIRECTED 01/20 completed Not Available Not Available Not Available Vitals Date Recorded Body height Body mass index (BMI) Body weight Body temperature Heart rate Oxygen saturation Oxygen saturation in Arterial blood by Pulse oximetry Systolic blood pressure Diastolic blood pressure Provider Name and Address Organization Details Last Updated DateTime 3 157.48 cm 40.6 kg/m2 934070. 51 g 97.6 [degF] 102 /min 98 % 98 % 144 mm[Hg] 84 mm[Hg] Diane Echeverria MA ID Glanse [facility] [employer] 3 16:31:30 Date Recorded Body height Body mass index (BMI) Body weight Heart rate Oxygen saturation Oxygen saturation in Arterial blood by Pulse oximetry Systolic blood pressure Diastolic blood pressure Provider Name and Address Organization Details Last Updated DateTime 4 157.48 cm 32.9 kg/m2 88048.6 3 g 70 /min 99 % 99 % 120 mm[Hg] 80 mm[Hg] RICO Sheppard Sevence [facility] [employer] 4 15:38:39 Date Recorded Body height Body mass index (BMI) Body weight Heart rate Respiratory rate Oxygen saturation Oxygen saturation in Arterial blood by Pulse oximetry Systolic blood pressure Diastolic blood pressure Provider Name and Address Organization Details Last Updated DateTime 4 157.48 cm 32.9 kg/m2 22092.6 3 g 70 /min 14 /min 99 % 99 % 130 mm[Hg] 78 mm[Hg] Ivon Avila Sevence [facility] [employer] 4 14:03:40 Date Recorded Body height Body mass index (BMI) Body weight Body temperature Heart rate Respiratory rate Oxygen saturation Oxygen saturation in Arterial blood by Pulse oximetry Systolic blood pressure Diastolic blood pressure Provider Name and Address Organization Details Last Updated DateTime 4 157.48 cm 31.1 kg/m2 20499.7 g 97.5 [degF] 82 /min 18 /min 99 % 99 % 112 mm[Hg] 60 mm[Hg] Alex Lanza LPN [facility] 4 15:54:10 Date Recorded Body height Body mass index (BMI) Body weight Body temperature Heart rate Systolic blood pressure Diastolic blood pressure Provider Name and Address Organization Details Last Updated DateTime 5 157.48 cm 30.7 kg/m2 71039.5 2 g 97.6 [degF] 84 /min 110 mm[Hg] 68 mm[Hg] RICO Vides [facility] 5 18:05:55 Social History Question Answer Notes LastModified by Organizat ion Details LastModified Time Tobacco Smoking Status Never Smoker MARSHA Velazquez, [facility] 12/16/2022 16:28:55 Do You Have An Advance Directive? No [id number] Information not available 11/20/2022 What Is Your Level Of Caffeine Consumption? Moderate [id number] Information not available 11/20/2022 In The 14 Days Before Symptom Onset, Have You Had Close Contact With A Laboratory-confir med COVID-19 While That Case Was Ill? No [email or web address] Information not available 12/16/2022 In The 14 Days Before Symptom Onset, Have You Had Close Contact With A Person Who Is Under Investigation For COVID-19 While That Person Was Ill? No [email or web address] Information not available 12/16/2022 What Type Of Diet Are You Following? REGULAR [id number] Information not available 11/20/2022 What Is The Highest Grade Or Level Of School You Have Completed Or The Highest Degree You Have Received? [id number] [email or web address] Information not available 12/16/2022 Have There Been Any Changes To Your Family Or Social Situation? No [email or web address] Information no t available 12/16/2022 What Is The Fluoride Status Of Your Home? Unknown [email or web address] Information not available 12/16/2022 Are There Any Guns Present In Your Home? Yes [email or web address] Information not available 12/16/2022 Do You Use Insect Repellent Routinely? Yes [email or web address] Information not available 12/16/2022 Where Do You Live? SingleLevelHouse [email or web address] Information not available 12/16/2022 Do You Have A Medical Power Of Marriage And Family Social Worker? No Information not available 12/16/2022 What Was The Date Of Your Most Recent Tobacco Screening? 12/13/2024 [email or web address] Information not available 12/13/2024 Do You Have Any Pets? Yes [email or web address] Information not available 12/16/2022 What Is Your Relationship Status? Single [id number] Information not available 11/20/2022 Do You Have Smoke And Carbon Monoxide Detectors In Your Home? Yes [email or web address] Information not available 12/16/2022 Are You Passively Exposed To Smoke? No [email or web address] Information no t available 12/16/2022 Are There Any Smokers In Your House? No [email or web address] Information not available 12/16/2022 Do You Use Sunscreen Routinely? Yes [email or web address] Information not available 12/16/2022 Has Tobacco Cessation Counseling Been Provided? No [email or web address] Information not available 12/16/2022 Have You Recently Traveled Abroad? No [email or web address] Information not available 12/16/2022 Do You Have Any Dietary Restrictions? No [email or web address] Information not available 12/16/2022 Sex: Female Functional Status Question Answer Note LastModified by Organizat ion Details LastModified Time Do you use any illicit or recreational drugs? No [email or web address] Information not available 12/16/2022 Do you or have you ever used any other forms of tobacco or nicotine? No [email or web address] Information not available 12/16/2022 What is your level of alcohol consumption? 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 None [id number] Information not available 11/20/2022 Mental Status Question Answer Note LastModified by Organization D etails LastModified Time Do you feel stressed (tense, restless, nervous, or anxious, or unable to sleep at night)? [id number] [email or web address] Information not available 12/16/2022 Family History Relationship Description Onset Age of this Age Resolved Age Notes LastModified by Organization Details LastModified Time Mother Malignant neoplasm of ovary [email or web address] Not available 17:14:13 Mother Malignant tumor of pharynx [email or web address] Not available 17:14:13 Mother Cerebrovascu lar accident [email or web address] Not available 12/13/2024 17:14:13 Mother Hypertensive disorder [email or web address] Not available 2023 09:25:53 Mother Heart disease [email or web address] Not available 2023 09:26:56 Father Diabetes mellitus [id number] Not available 11/20/2022 08:06:24 Father Blood coagulation disorder [email or web address] Not available 17:14:13 Unspecified Relation Heart disease GRANDM OTHER [email or web address] Not available 01/28/2024 09:26:56 Medical History Condition Response DIABETES, TYPE Y ALLERGIES/HAYFEVER Y HEADACHES/MIGRAINES Y LIVER DISEASE Gynecological History Statement/Question Response Abnormal Pap N Date of Last Pap Smear 08/27/2021 Current Control Method BCPs Date of LMP 08/14/2021 Breast Problems no Obstetrics History GPAL:G 4 P 3 0 1 3 Type Value Full Term 3 Spontaneous 1 Living 3 Total 4 Immunizations Vaccine Type Date Status Note Provider Nam e and Address Organization Details Recorded Time Influenza, split virus, quadrivalent, preservative 0 completed Carmen Bolton RMA null, Sevence [facility] [employer] 12/13/2024 18:01:54 Influenza, MDCK, quadrivalent, PF 9 completed Carmen Bolton RMA null, [employer] [facility] Canary [facility] [email or web address] 12/13/2024 18:01:54 Influenza, MDCK, quadrivalent, preservative 8 completed Carmen Bolton RMA null, [employer] [facility] [employer] 12/13/2024 18:01:54 Influenza, split virus, quadrivalent, PF 2 completed Not Available [employer] 11/20/2022 08:12:57 Tdap 4 completed Carmen Bolton RMA null, Sevence [facility] [employer] 12/15/2023 08:54:02 Past Encounters Encounter ID Performer Location Encounter Start Date Encounter Closed Date Diagnosis/Indication Diagnosis SNOMED-CT Code Diagnosis ICD10 Code Diagnosis Note [id number] S_Histor ic_[facility] _ATHENA_M IGRATION_ DEFAULT_1 _1 , 08/27/2021 00:00:00 08/27/2021 11:10:17 [id number] Bryan ibarra MD [facility] Internal Med [facility] [place] [address] [place] [address]., [address] [address] 09/06/2022 00:00:00 09/06/2022 17:15:12 [id number] Bryan biarra MD [facility] Internal Med [address] [address] 10/14/2022 00:00:00 10/14/2022 20:27:54 [id number] Bryan ibarra MD [facility] Internal Med [facility] [place] [address] [place] [address], [address] [address] 12/16/2022 16:26:52 12/16/2022 16:59:55 Allergic rhinitis 95913399 J30.9 follows supervisor photocomposition- Dr. Petty Elevated blood-pressure reading without diagnosis of hypertension 821751326 R03.0 She is asymptomat ic today- has been normal at her other apptsRecom mend monitoring at home normal again today Family his tory of Factor V Leiden mutation 5295320159 8198054 Z83.2 labs were negative for mutation Family his tory of Autoimmune disease 394049560 Z83.2 BELÉN was negative Type 2 favian betes mellitus without complication 337548971 E11.9 insurance would not cover mounjaro until she tries and fails ozempic first- has been on Ozempic, still having issues with portion control, will try again and see if Mounjaro is covered I did show her how to use the Mounjaro pen today in case they do approve it, we also discussed the dosing difference s, still a weekly shot pt is aware of side effects, risks, benefitspt denies any personal or family history of MEN II or MTC, denies and personal history of pancreatit ispt knows to call the office if any severe n/v or abdominal pain Obesity 090365428 E66.9 recommend healthy, well balanced mealsfocus on lean meats, fresh vegetables , fresh fruits, whole grainsredu ce fast/proce ssed foods or eating out to no more than 1-2 times per weekaim to get 30 min of exercise most days of the week- walking is a great choicealso recommend resistance training 2-3 times per week Unable to concentrate 60 969288 R41.840 We discussed options- I gave her the option of a psych referral for formal ADHD testing, or we could trial a med like wellbutrin here in PCP settingshe would like to trial wellbutrin - she is or side effects, risks, and benefits Call office if any change in mood or behavior She declines psychiatry referral today [id number] Bryan ibarra MD [facility] Internal Med [address] [facility], [address] [place] [address] 01/20/2023 15:43:38 01/20/2023 16:21:28 Type 2 diabetes mellitus without complication 847062171 E11.9 on metformin, Ovi pt is aware of side effects, risks, benefitspt denies any personal or family history of MEN II or MTC, denies and personal history of pancreatit ispt knows to call the office if any severe n/v or abdominal pain Allergic rhinitis 908191 04 J30.9 follows supervisor photocomposition- Dr. Petty Elevated blood-pressure reading without diagnosis of hypertension 352190951 R03.0 She is asymptomat ic today- has been normal at her other apptsRecom mend monitoring at home normal again today Family his tory of Factor V Leiden mutation 9125362561 0597325 Z83.2 labs were negative for mutation Family his tory of Autoimmune disease 528961665 Z83.2 BELÉN was negative Obesity 462703926 E66.9 recommend healthy, well balanced mealsfocus on lean meats, fresh vegetables , fresh fruits, whole grainsredu ce fast/proce ssed foods or eating out to no more than 1-2 times per weekaim to get 30 min of exercise most days of the week- walking is a great choicealso recommend resistance training 2-3 times per week Unable to concentrate 60 122340 R41.840 We discussed options- I gave her the option of a psych referral for formal ADHD testing, or we could trial a med like wellbutrin here in PCP settingcon tinue wellbutrin - she is or side effects, risks, and benefitsCa ll office if any change in mood or behaviorSh e declines psychiatry referral today [id number] Bryan ibarra MD [facility] Internal Med [address], [address] [place] [address] 06/02/2023 16:25:11 06/02/2023 16:50:12 Type 2 diabetes mellitus without complication 988116110 E11.9 on metformin, Ovi pt is aware of side effects, risks, benefitspt denies any personal or family history of MEN II or MTC, denies and personal history of pancreatit ispt knows to call the office if any severe n/v or abdominal pain Allergic rhinitis 758761 04 J30.9 follows supervisor photocomposition- Dr. Petty Elevated blood-pressure reading without diagnosis of hypertension 067679939 R03.0 She is asymptomat ic today- has been normal at her other apptsRecom mend monitoring at homecall office if SBP > 150 or DBP > 90 Family his tory of Factor V Leiden mutation 7225182589 0514321 Z83.2 labs were negative for mutation Family his tory of Autoimmune disease 777293885 Z83.2 BELÉN was negative Obesity 748046787 E66.9 recommend healthy, well balanced mealsfocus on lean meats, fresh vegetables , fresh fruits, whole grainsredu ce fast/proce ssed foods or eating out to no more than 1-2 times per weekaim to get 30 min of exercise most days of the week- walking is a great choicealso recommend resistance training 2-3 times per week Unable to concentrate 60 902345 R41.840 We discussed options- I gave her the option of a psych referral for formal ADHD testing, or we could trial a med like wellbutrin here in PCP setting continue wellbutrin - she is or side effects, risks, and benefitsCa office if any change in mood or behaviorSh e declines psychiatry referral today Hyperlipid emia screening 572582644 Z13.409 [id number] Bryan ibarra MD [facility] Internal Med [address] , [place] [address] 12/08/2023 15:09:51 12/08/2023 16:20:32 Screening - NAD 985742925 Z13.9 PAP: sees her OB in [place], does well Get yearly flu shotUTD on Tdap 12/08/2023 Does not do COVID 19 vaccine or its boosters RTC in 6 months, do labs, ER if worse, she did verbalize her understand ing of the above Type 2 favian betes mellitus without complication 792754260 E11.9 On metformin 500mg bid, renewedOn mounjaro 7.5mg weekly, no hx of MEN2 or MCT or parathyroi d or pancreatic issuesGet labs Unable to concentrate 60 902546 R41.840 On bupropion XL 150mg dailyDoes very well on this, is not as anxious alsoNot suicidal or homicidalD eclines any referral to psychiatry Essential hypertension 40805075 I10 Not on any Hyperlipidemia 48278349 E78.5 Not on any medsGet labs Environmental allergy 42 5809139 T78.49XA On zyrtecTake as needed Administra tion of diphtheria, pertussis, and tetanus vaccine 156974107 Z23 Vitamin D deficiency 347 36694 E55.9 Serum luh min B12 below reference range 110522213 R79.89 [id number] Humza Tamayo DPM [facility] [address] [facility] [address] [place] [address] 02/10/2024 13:57:21 02/10/2024 15:38:38 Diabetes mellitus 38648997 E11.9 Educated on side effects of diabetesed ucated on diabetic neuropathy and healthy eating habitsreco mmend supportive shoe gearfollow -up in 1 yearcontin ue diabetic control per PCP recommenda tion [id number] Bryan ibarra MD [facility] Internal Med [address] [facility] [place] [address] 06/14/2024 15:48:01 06/14/2024 16:15:47 Screening - NAD 976190343 Z13.9 PAP: sees her OB in [place], does well Get yearly flu shotUTD on Tdap 12/08/2023 Does not do COVID 19 vaccine or its boosters RTC in 6 months, do labs, ER if worse, she did verbalize her understand ing of the above Type 2 favian betes mellitus without complication 454676324 E11.9 On metformin 500mg bid, renewedOn mounjaro 7.5mg weekly, no hx of MEN2 or MCT or parathyroi d or pancreatic issuesGet labs Unable to concentrate 60 649790 R41.840 On bupropion XL 150mg dailyDoes very well on this, is not as anxious alsoNot suicidal or homicidalD eclines any referral to psychiatry Essential hypertension 20915298 I10 Not on any medsDoes well Hyperlipidemia 17747600 E78.5 Not on any medsGet labs Environmental allergy 42 6499002 T78.49XA On zyrtecTake as needed Vitamin D deficiency 347 88226 E55.9 Serum luh min B12 below reference range 652541849 R79.89 Low folateOn MVI with folate, and repeat the labs [id number] Bryan ibarra MD [facility] Primary Care [facility] [address] [facility] [address] [place] [address] 12/13/2024 17:12:22 12/13/2024 18:35:46 Screening - NAD 502048212 Z13.9 PAP: sees her OB in [place], does well Get yearly flu shotUTD on Tdap 12/08/2023 Does not do COVID 19 vaccine or its boosters RTC in 6 months, do labs, ER if worse, she did verbalize her understand ing of the above Type 2 favian betes mellitus without complication 910125945 E11.9 On metformin 500mg bid, not taking thisOn mounjaro 7.5mg weekly, no hx of MEN2 or MCT or parathyroi d or pancreatic issuesDisc ussed weaning off, but she would like to keep on this as she would like to lose more weight, advised on all the side effectsGet labs Unable to concentrate 60 295733 R41.840 On bupropion XL 150mg daily, weaned off this by herself, does wellIs not as anxious alsoNot suicidal or homicidalD eclines any referral to psychiatry Essential hypertension 83654337 I10 Not on any medsDoes well Hyperlipidemia 88498848 E78.5 Not on any medsGet labs Environmental allergy 42 7641665 T78.49XA On zyrtecTake as needed Vitamin D deficiency 347 96559 E55.9 Serum luh min B12 below reference range 114910162 R79.89 Low folateOn MVI with folate, and repeat the labs Hyperbilirubinemia 48538 006 E80.6 US liver: 10/12/2024 : 3.5cm hepatic echogenic mass, get CT liver Liver hematoma 447786358 K76.89 Seen on US liver 10/12/2024 Dr Jennings 10/26/2024 , f/u in one year MRI Abd: 12/01/2024 : [facility] in [place], [place].6 cm lobulated mass compatible with hemangioma repeat in 6-9 months Health Concerns Section Related Observation LastModified by Organization Detai ls LastModified Time None Recorded Concern Status LastModified by Organization Details LastModified Time None Recorded Advance Directives Directive N: Payers Encounter Date Sequence Insurance Name Policy Number Policy Child Covered Member ID Child Member ID Guarantor Name 06/02/2023 1 [place] [id number] [facility] [id number] [facility] 12/08/2023 1 [place] [id number] [facility] [id number] [facility] 02/10/2024 1 [place] [id number] [facility] [id number] [facility] 06/14/2024 1 [place] [id number] [facility] [id number] 99 [facility] 12/13/2024 1 [place] [id number] [facility] [id number] 99 [facility] Notes Date Note Type Note Provider Name and Address Organization Details Recorded Time 06/02/20 23 text/htm sharon Rhodes presents today for follow-up. She reports she is doing very well on the Mounjaro. She has not had any of the GI symptoms like she had an Ozempic since we switched her to the Mounjaro. She has not been checking her sugars at home. She reports she has lost about 50 lb since we started her on the medication. Overall she is feeling much better. She notes that her skin tags on her neck have been going away. She also noted that the acanthosis nigricans around her neck and axilla is improving as well. She reports her mood is doing really well on her current dose of Wellbutrin. She tells me that her kids have noticed a big difference and their relationship has improved as her mood is so much better. She denies any SI or HI today. She feels like this is a good dose for her. Her blood pressure is a little bit elevated today. She was rushing to get here. We have been watching this and she has also been tracking this at home. She is asymptomatic with this today. She is due for lab work. JACQUELINE Nieto-Agustina [address], [address], [place], [address], [employer] 06/02/2023 17:15:26 12/08/19 24 text/htm l OV 12/08/2023:Here to establish care Present hx:DMIIHLDInability to concentrateHTNAllergies Here to discuss above and get labs, she feels well, would like a refill for the meds Bryan Spencer MD [address], [address], [place], [address], [facility] 12/08/2023 16:25:00 02/10/20 24 text/htm l . Patient is a 38-year-old female who presents the office for diabetic foot exam. Patient denies any numbness tingling or burning in feet. Patient states that she is currently working on better control of diabetes. Patient states she is still eats carbs. Patient states that she does not check her sugars as she should. Patient denies any open wounds or infection of the feet. Patient denies any pain with walking. Humza Tamayo DPM [address], [address], [place], [address], [employer] 02/10/2024 15:07:24 06/14/20 24 text/htm l OV 12/08/2023:Here to establish care Present hx:DMIIHLDInability to concentrateHTNAllergiesHere to discuss above and get labs, she feels well, would like a refill for the meds OV 06/14/2024: Here for her f/u apt, she is doing well today, no new labs Bryan pSencer MD [address], [address], [place], [address], [employer] [facility] 06/14/2024 17:06:28 12/14/19 25 text/htm l OV 12/08/2023:Here to establish care Present hx:DMIIHLDInability to concentrateHTNAllergiesHere to discuss above and get labs, she feels well, would like a refill for the meds OV 06/14/2024: Here for her f/u apt, she is doing well today, no new labs OV 12/13/2024: Here for her f/u apt, she feels well today Bryan Spencer MD [address], [address], [place], [address], [employer] 12/13/2024 18:37:32 OBGyn Episode No OBEpisode recorded.
--- OUTSIDE RECORDS SUMMARY | 2025-02-08 07:59 | XMS_ITS | Clinical Summary ---
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
--- OUTSIDE RECORDS SUMMARY | 2025-02-08 07:59 | XMS_ITS | Referral Summary ---
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 Gender Identity Not on file Sexual Orientation Not on file Last Filed Vital Signs Vital Sign Reading Time Taken Comments Blood Pressure 118/77 08/07/2018 3:25 PM POLE LIFT OPERATOR Pulse 70 08/07/2018 3:25 PM POLE LIFT OPERATOR Temperature 37.1 C (98.7 F) 08/07/2018 11:44 AM POLE LIFT OPERATOR Respiratory Rate 20 08/07/2018 3:25 PM POLE LIFT OPERATOR Oxygen Saturation 100% 08/07/2018 11:44 AM POLE LIFT OPERATOR Inhaled Oxygen Concentration - - Weight 90.7 kg (200 lb) 08/07/2018 11:44 AM POLE LIFT OPERATOR Height 160 cm (5' 3 ) 08/07/2018 11:44 AM POLE LIFT OPERATOR Body Mass Index 35.43 08/07/2018 11:44 AM POLE LIFT OPERATOR Plan of Treatment Not on file Insurance CHOICE PLUS [facility] HMO/PPO Address: [place] [address] Care Teams Emergency Room Clerk Relationship Specialty Start Date End Date Carey Ellison PA PCP - General Physician Carpet Layer Helper 08/12/19
--- NOTE | 2025-02-08 08:00 | ECG_ITS ---
Test Date: 2025-02-08 08:29:07 Measurements Intervals [place] Rate: 76 P: 33 IL: 117 QRS: 27 QRSD: 75 T: 40 QT: 365 QTc: 413 Interpretive Statements SINUS RHYTHM WITH SHORT [place] INTERVAL WITH OCCASIONAL SUPRAVENTRICULAR PREMATURE COMPLEXES LOW QRS VOLTAGE IN PRECORDIAL LEADS [QRS DEFLECTION < 1.0 mV IN CHEST LEADS] No previous ECG available for comparison Electronically Signed On 02-08-2025 13:36:02 CDT by Irene Potter M.D.
== END 2025-02-08 07:51 | disposition home or self-care (01) ==
LOC: ANHSURGERY 07:55
PROVIDERS: PCP Internal Medicine; Visit Provider Obstetrics & Gynecology
DX: Z01.810 Encounter for preprocedural cardiovascular examination (principal); E11.9 Type 2 diabetes mellitus without complications; R94.31 Abnormal electrocardiogram [ECG] [EKG]
CPT/HCPCS: 93005

== ENCOUNTER 2025-02-08 08:06 | Outpatient (CLI) | payer BC, SELFPAY ==
--- OUTSIDE RECORDS SUMMARY | 2025-02-08 08:11 | XMS_ITS | CONTINUITY OF CARE DOCUMENT ---
Author Name dora john Address Unknown Organization [facility] Address [address] [facility] [address] [place] [address] Phone [phone] Care Team Providers Care Dampener Name Role Phone Jenny Chapa MD Unavailable Jenny Chapa MD Unavailable [phone] INSURANCE PROVIDERS Payer name Policy type / Coverage type [place] red republican ID [facility] [id number] Other [id number]
[2025-02-08 08:43] LABS: Basophils Absolute Auto 0.1 K/mm3 (0.0-0.1); Basophils Percent Auto 0.5 % (0.2-1.2); Eosinophils Absolute Auto 0.1 K/mm3 (0-0.3); Eosinophils Percent Auto 1.3 % (0-4.4); Hematocrit 38.9 % (37.0-47.0); Hemoglobin 13.3 g/dL (12.0-15.0); Immature Granulocyte Absolute 0.04 K/mm3 (0.00-0.031); Immature Granulocyte Percent A 0.4 % (0-0.5); Lymphocytes Absolute Auto 2.04 K/mm3 (0.9-3.2); Lymphocytes Percent Auto 18.9 % (18.3-44.2); Mean Corpuscular HGB Conc 34.2 g/dl (32-36); Mean Corpuscular Volume 93.5 fl (80-100); Monocytes Absolute Auto 0.6 K/mm3 (0.1-0.6); Monocytes Percent Auto 5.2 % (2.6-8.5); Neutrophils Percent Auto 73.7 % (45.5-73.1); Platelet Count Result 221 k/mm3 (150-375); Red Blood Count 4.16 M/mm3 (4.2-5.4); Red Cell Distribution Width 11.8 % (11.5-14.5); White Blood Count 10.8 K/mm3 (4.5-10.0)
[2025-02-08 09:10] LABS: Free T4 Free Thyroxine 0.92 ng/dL (0.78-2.19); Vitamin D 25 Hydroxy 52.3 ng/mL
[2025-02-08 09:54] LABS: Alanine Aminotransferase 16 U/L (6-35); Albumin Level 4.3 g/dL (3.5-5.1); Alkaline Phosphatase 32 U/L (38-126); Anion Gap 6 mmol/L (4-12); Aspartate Amino Transferase 23 U/L (14-36); Bilirubin,Total 1.9 mg/dL (0.2-1.3); Blood Urea Nitrogen 17 mg/dL (7-17); Calcium 9.1 mg/dL (8.4-10.2); Carbon Dioxide 26 mmol/L (22-30); Chloride 106 mmol/L (98-107); Cholesterol 141 mg/dL (0-200); Estimated Glomerular Filt Rate > 60; Glucose 83 mg/dL (65-110); HDL Direct 63 mg/dL; Potassium 4.5 mmol/L (3.4-5.0); Sodium 138 mmol/L (137-145); Triglycerides 45 mg/dL (<150)
[2025-02-08 10:00] LABS: Hemoglobin A1C 4.7 % (<5.7)
[2025-02-08 10:04] LABS: LDL Cholesterol Direct 57 mg/dL
[2025-02-08 11:08] LABS: Folic Acid > 20.0 ng/mL (2.76->20)
== END 2025-02-08 08:07 | disposition home or self-care (01) ==
LOC: ANHLAB 08:07
PROVIDERS: PCP Internal Medicine; Visit Provider Internal Medicine
DX: E11.9 Type 2 diabetes mellitus without complications (principal); E78.5 Hyperlipidemia, unspecified; E55.9 Vitamin D deficiency, unspecified; R79.89 Other specified abnormal findings of blood chemistry
CPT/HCPCS: 36415; 80053; 80061; 82306; 82607; 82746; 83036; 84439; 84443; 85025

== ENCOUNTER 2025-02-10 02:01 | Day surgery (SDC) | payer BC, SELFPAY ==
[2025-02-07 11:48] VITALS: BMI 30.2
--- NOTE | 2025-02-07 11:56 | PC.NURSE ---
Report to the Outpatient Waiting Room, entrance under the green pavilion located off [facility], at time _0845_ on date _[id number]_. Planned Procedure Time: _1045_.? Time changes happen often and if your time is changed the preop area will call you the afternoon before. - You and your visitor will be asked to self-screen and do not enter if you have any COVID symptoms. Please call surgeon if you need to reschedule. - A mask is optional within the hospital at this time. Patients may have clear liquids (water, carbonated beverages, clear teas, apple juice) until 3 hours prior to surgery with a maximum of 20 ounces. - No food from midnight until time of surgery and no smoking, or chewing tobacco (or any form of nicotine). No chewing gum, candy or mints. Take only the following medications with a SIP of water on the morning of surgery: ___None DO NOT STOP ANY OF YOUR OTHER PRESCRIPTION MEDICATIONS PRIOR TO SURGERY EXCEPT THE FOLLOWING Hold all vitamins and supplements for 3 days per anesthesiologist. Medications to discontinue per physician Date to take last dose Please no make-up, nail citizen of [place], hairspray, perfume, deodorant, or body powder the day of surgery.? No jewelry (including any body piercings) or valuables the day of surgery, leave them at home.? Please take a shower or bath the night before, or the morning of, surgery with an antibacterial soap.? Wear comfortable, loose fitting clothing.? - Jewelry must be removed prior to entering the operating room.? Rings and piercings that are not removed may be cut off. - The hospital will not accept responsibility for valuables.? - Please leave all valuables, including medications, at home the day of surgery. If you are going home after surgery, a licensed route driver coin machines must drive you home.? - NO public transportation without another adult if you receive anesthesia. - We recommend that an adult stay with you for 24 hours following discharge. - We also recommend that you do not drive, make important decision, drink alcoholic beverages, or take any drugs that were not prescribed by your health care provider for at least 24 hours after your discharge time. Follow any additional instructions given to you from your surgeon. Telephone instructions given to __Summer___and asked if any additional questions and then verbalized understanding. Patient advised to call surgeon office or pre surgery nurse liaison [phone] if any additional questions.
[2025-02-10] VITALS (8 sets, daily range): BP systolic 108–136; BP diastolic 57–81; PULSE 68–88; RESP 13–18; TEMP 36.2–36.5; O2SAT 97–100
--- OUTSIDE RECORDS SUMMARY | 2025-02-10 02:04 | XMS_ITS | Clinical Summary ---
Author Organization [facility] Address [address] [place] [address] Care Team Providers Care Cashier Receptionist Name Role Phone Carey Collier Primary Care Pr ovid Source Comments [facility],non-owned Affiliates and Associated Physician Practices is amultiple site organization consisting of ambulatory clinics and hospital sitesin [place], [place], [place] and [place]. This disclosure is being madepursuant to the Care Everywhere program and may not contain all information available regarding this patient. Last updated 18.[facility] Allergies No known active allergies Medications * [...] Department Care Team Description 12/03/2024 Orders Only [facility] Health Cancer Care [address] [address] [place] [address] Aravind Jennings MD Elevated bilirubin ; Hemangioma, unspecified site 11/30/2024 6:52 PM CDT - 11/30/2024 11:59 PM CDT Hospital Encounter [facility] Imaging Services - MRI [address] [place] [address] Discharge Disposition: Home or Self Care 11/18/2024 Travel from Last 3 Months Social History Tobacco [...] on file Legal Sex Female 9:44 AM LEARNING SUPPORT ASSISTANT Gender Identity Not on file Sexual Orientation Not on file Last Filed Vital Signs Vital Sign Reading Time Taken Comments Blood Pressure 122/68 10/26/2024 10:53 AM LEARNING SUPPORT ASSISTANT Pulse 77 10/26/2024 10:53 AM LEARNING SUPPORT ASSISTANT Temperature 36.7 C (98.1 F) 10/26/2024 10:53 AM LEARNING SUPPORT ASSISTANT Respiratory Rate 16 10/15/2019 3:36 PM LEARNING SUPPORT ASSISTANT Oxygen Saturation 100% 10/26/2024 10:53 AM LEARNING SUPPORT ASSISTANT Inhaled Oxygen Concentration - - Weight 75.1 kg (165 lb 8 oz) 10/26/2024 10:53 AM LEARNING SUPPORT ASSISTANT Height 157.5 cm (5' 2 ) 10/26/2024 10:53 AM LEARNING SUPPORT ASSISTANT Body Mass Index 30.27 10/26/2024 10:53 AM LEARNING SUPPORT ASSISTANT Plan of Treatment Upcoming Encounters Date Type Department Care Team (Late st Contact Info) Description 10/27/2025 3:00 PM LEARNING SUPPORT ASSISTANT Documentation [facility] Cancer [address] [address] 10/27/2025 3:10 PM LEARNING SUPPORT ASSISTANT Office Visit [facility] Cancer [address] [address] Aravnid Jennings MD [address] [place] [phone] Health Maintenance Due Date Last Done Comments PAP SMEAR 1985 HIV SCREENING 02/16/2000 HEPATITIS C SCREENING 02/11/2003 DTAP/TDAP/TD VACCINES (1 - Tdap) 02/16/2004 HEPATITIS B VACCINE (1 of 3 - 19+ 3-dose series) 02/16/2004 COVID-19 VACCINE ( - season) 2024 INFLUENZA VACCINE (Season Ended) 2025 [...] Jennifer Shepard MD on 12/01/2024 10:19 AM Aravind Jennings MD MR ORDERABLES Final Result from Last 3 Months Insurance ANTHEM ANTHEM Care Teams Cashier Receptionist Relationship Specialty Start Date End Date Carey Collier PA [address] [place] [address] PCP - General Physician Keeper Helper 10/15/19
--- OUTSIDE RECORDS SUMMARY | 2025-02-10 02:04 | XMS_ITS | Clinical Summary ---
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
--- OUTSIDE RECORDS SUMMARY | 2025-02-10 02:04 | XMS_ITS | Clinical Summary ---
Author Organization [facility] Address [address] [place] [phone] Care Team Providers Care Assistant Chief Train Dispatcher Name Role Phone Juankedar Carey OSHEA Primary [...] on file Legal Sex Female 6:52 AM GOLF PROFESSIONAL Gender Identity Not on file Sexual Orientation Not on file Obstetrics History Last Filed Vital Signs Vital Sign Reading Time Taken Comments Blood Pressure 118/77 08/07/2018 3:25 PM GOLF PROFESSIONAL Pulse 70 08/07/2018 3:25 PM GOLF PROFESSIONAL Temperature 37.1 C (98.7 F) 08/07/2018 11:44 AM GOLF PROFESSIONAL Respiratory Rate 20 08/07/2018 3:25 PM GOLF PROFESSIONAL Oxygen Saturation 100% 08/07/2018 11:44 AM GOLF PROFESSIONAL Inhaled Oxygen Concentration - - Weight 90.7 kg (200 lb) 08/07/2018 11:44 AM GOLF PROFESSIONAL Height 160 cm (5' 3 ) 08/07/2018 11:44 AM GOLF PROFESSIONAL Body Mass Index 35.43 08/07/2018 11:44 AM GOLF PROFESSIONAL Plan of Treatment Not on file Insurance CHOICE PLUS [facility] HMO/PPO Address: [facility] [id number] [place] [address] Care Teams Assistant Chief Train Dispatcher Relationship Specialty Start Date End Date Carey Ellison PA PCP - General Physician Video Production Assistant 08/12/19
--- OUTSIDE RECORDS SUMMARY | 2025-02-10 02:04 | XMS_ITS | Patient Health Record ---
Author Organization [facility] ([address]) Address [address] [place] [address] Care Team Providers Care Second Cook And Baker Name Role Phone Jayla Petty Unavailable [phone] [facility], Provider Unavailable Unavailab le Allergies No [...] Status Risk Notes Problem Chronic allergic conjunctivitis (90474473) Other chronic allergic conjunctivitis (H10.45) Active confirmed Problem Allergic rhinitis caused by pollen (disorder) (23168902) Allergic rhinitis due to pollen (J30.1) Active confirmed Problem Allergic rhinitis caused by animal hair and dander (178883585031231) Allergic rhinitis due to animal (cat) (dog) hair and dander (J30.81) Active confirmed Problem Allergic rhinitis (01451090) Other allergic rhinitis (J30.89) Active confirmed Problem Chronic rhinitis (34197605) Chronic rhinitis (J31.0) Active confirmed Problem Mild intermittent asthma (409416509) Mild intermittent asthma, uncomplicated (J45.20) Active confirmed Problem Uncomplicated mild persistent asthma (445539321) Mild persistent asthma, uncomplicated (J45.30) Active confirmed Problem Uncomplicated moderate persistent asthma (145348999) Moderate persistent asthma, uncomplicated (J45.40) Active confirmed Problem Uncomplicated severe persistent asthma (100671537) Severe persistent asthma, uncomplicated (J45.50) Active confirmed Problem Allergic rhinitis caused by pollen (disorder) (58850201) Allergic rhinitis due to pollen (J30.1) Active confirmed Problem Allergic rhinitis caused by animal hair and dander (381965343551215) Allergic rhinitis due to animal (cat) (dog) hair and dander (J30.81) Active confirmed Problem Allergic rhinitis (90019864) Other allergic rhinitis (J30.89) Active confirmed Problem Chronic allergic conjunctivitis (82957251) Other chronic allergic conjunctivitis (H10.45) Active confirmed Encounters Encounter Location Date Provider Diagnosis [address] [address] 03/06/2024 Provider Ashley Allergic rhinitis due to pollen J30.1 Assessments Encounter Date Diagnosis (ICD Code) Assessment Notes Treatment Notes Treatment Clinical Notes Section Notes 03/06/2024 Allergic rhinitis due to pollen (ICD-10 - J30.1) Plan Of Treatment No Information Insurance Providers Payer Name Payer Address Payer Phone Subscriber Number Group Number Insured Name Patient Relationship to Insured Coverage Start Date Coverage End Date [facility] [address] [place] [address] [phone] [id number] Meagan Ricks Self - patient is the insured Medical (General) History Medical History History ICD Code Allergic rhinitis due to pollen J30.1 Surgical History Surgery Date(Month/Year) tonsillectomy
--- OUTSIDE RECORDS SUMMARY | 2025-02-10 02:04 | XMS_ITS | CONTINUITY OF CARE DOCUMENT ---
Author Name dora john Address Unknown Organization [facility] Address [address] [place] [address] Phone [phone] Care Team Providers Care On Site Soil Evaluator Name Role Phone Jenny Chapa MD Unavailable Jenny Chapa MD Unavailable INSURANCE PROVIDERS Payer name Policy type / Coverage type [place] red democrat ID [facility] [id number] Other [id number]
--- OUTSIDE RECORDS SUMMARY | 2025-02-10 02:04 | XMS_ITS | Encounter Summary ---
Author Organization [facility] Address [address] [place] [address] Care Team Providers Care Assisted Living Administrator Name Role Phone Unavailable Primary Care Provider [...] on file Legal Sex Female 5:29 AM SHOE SPRAYER Gender Identity Not on file Sexual Orientation Not on file documented as of this encounter Plan of Treatment Not on file documented as of this encounter Procedures Procedure Name Priority Date/Time Associated Diagnosis Comments SPECIMEN HOLD, BLOOD Routine 10/03/2007 3:00 AM SHOE SPRAYER PT AND APTT Routine 10/03/2007 3:00 AM SHOE SPRAYER CBC WITH DIFFERENTIAL Routine 10/03/2007 3:00 AM SHOE SPRAYER CBC WITH DIFFERENTIAL Routine 10/03/2007 3:00 AM SHOE SPRAYER documented in this encounter Results * (ABNORMAL) CBC WITH DIFFERENTIAL (10/03/2007 3:00 AM SHOE SPRAYER) NEUTROPHILS 92(H) 45 - 70 % INTERFAC [...] 0.20 K/uL INTERFACE SYSTEM 10/03/2007 3:00 AM SHOE SPRAYER Result [facility] Jimmy Caal MD HEMATOLOGY ORDERABLES Edited Performing Organization Address [facility] Phone Number INTERFACE SYSTEM Refer to clinic/hospital department * (ABNORMAL) CBC WITH DIFFERENTIAL (10/03/2007 3:00 AM SHOE SPRAYER) WBC 16.9(H) 4.0 - 9.8 K/uL INTERFACE [...] 12.4 fL INTERFACE SYSTEM 10/03/2007 3:00 AM SHOE SPRAYER Result [facility] Jimmy Caal MD HEMATOLOGY ORDERABLES Edited Performing Organization Address [facility] Phone Number INTERFACE SYSTEM Refer to clinic/hospital department * SPECIMEN HOLD, BLOOD (10/03/2007 3:00 AM SHOE SPRAYER) SPECIMEN/HELD FOR: Blood/7 days INTERFACE SYSTEM 10/03/2007 3:00 AM SHOE SPRAYER Result [facility] Jimmy Caal MD CHEMISTRY ORDERABLES E dited Performing Organization Address [facility] Phone Number INTERFACE SYSTEM Refer to clinic/hospital department * PT AND APTT (10/03/2007 3:00 AM SHOE SPRAYER) PROTIME 13.7 12.7 - 15.1 Seconds INTERFACE SYSTEM INR 1.0 0.9 - 1.1 INTERFACE SYSTEM Comment: INR Therapeutic Range: Adult: 2.0 - 3.0 for pulmonary embolism or prophylaxis against venous thrombosis or systemic embolization. 2.0 - 3.0 for patients with tissue heart valves. 2.5 - 3.5 for patients with mechanical heart valves or post DE. Pediatric (12 years and under): 1.5 - [...] range for unfractionated heparin 10/03/2007 3:00 AM SHOE SPRAYER us Jimmy Caal MD HEMATOLOGY ORDERABLES Edited INTERFACE SYSTEM Refer to clinic/hospital department documented in this encounter Visit Diagnoses Not on filedocumented in this encounter
--- OUTSIDE RECORDS SUMMARY | 2025-02-10 02:04 | XMS_ITS ---
Author Organization [facility] ([address]) Address [address] [place] [address] Care Team Providers Care Angle Dozer Operator Name Role Phone Jayla Petty Unavailable [phone] [facility], Provider Unavailable Unavailab le [facility]AS[facility] Encounter Medications Medication SIG (Take, [...] Active Encounters Encounter Location Date Provider Diagnosis [address] [address] 03/06/2024 Provider ZZ-Migration Allergic rhinitis due to [...] Notes * Meagan RICKSDOB:1985 (39 yo F)Acc No.[id number]:03/06/2024 Patient: Meagan GRANT Provider: Maliha Justice :1985 A ge:39 Y S ex:Female Date:03/06/2024 Address:[address] [place], [place] [phone] Subjective: * Chief Complaints: * 1 . [facility] En[facility]. * Medical History: * Medications: T aking ZyrTEC Allergy 10 MG Tablet 1 tab(s) orally once a day Objective: * Vitals: Assessment: * Assessment: 1. A llergic rhinitis due to pollen - J30.1 (Primary) Plan: * Treatment: * Billing Information: * Visit Code: * Procedure Codes: * Electronic signature of Prov teganr [facility] on 02/10/2025 at 02:04 AM CDT Sign off status: Pending * Provider: Maliha Justice Date: 03/06/2024 Generated for Deidre duenas/Hemalatha/Maite on: 02/10/2025 02:04 AM CDT
--- OUTSIDE RECORDS SUMMARY | 2025-02-10 02:04 | XMS_ITS | Referral Summary ---
Author Organization [facility] Address [address] [place] [address] Care Team Providers Care Electronic Page Makeup System Operator Name Role Phone Dongjami Carey OSHEA Primary [...] on file Legal Sex Female 6:52 AM PIPELINE GANG SUPERVISOR Gender Identity Not on file Sexual Orientation Not on file Last Filed Vital Signs Vital Sign Reading Time Taken Comments Blood Pressure 118/77 08/07/2018 3:25 PM PIPELINE GANG SUPERVISOR Pulse 70 08/07/2018 3:25 PM PIPELINE GANG SUPERVISOR Temperature 37.1 C (98.7 F) 08/07/2018 11:44 AM PIPELINE GANG SUPERVISOR Respiratory Rate 20 08/07/2018 3:25 PM PIPELINE GANG SUPERVISOR Oxygen Saturation 100% 08/07/2018 11:44 AM PIPELINE GANG SUPERVISOR Inhaled Oxygen Concentration - - Weight 90.7 kg (200 lb) 08/07/2018 11:44 AM PIPELINE GANG SUPERVISOR Height 160 cm (5' 3 ) 08/07/2018 11:44 AM PIPELINE GANG SUPERVISOR Body Mass Index 35.43 08/07/2018 11:44 AM PIPELINE GANG SUPERVISOR Plan of Treatment Not on file Insurance CHOICE PLUS [facility] HMO/PPO Address: [place] [address] Care Teams Electronic Page Makeup System Operator Relationship Specialty Start Date End Date Carey Ellison PA PCP - General Physician Interior Design Coordinator 08/12/19
--- NOTE | 2025-02-10 06:56 | WPDHPUPDATE1 ---
History and Physical Update Update Date/Time: 02/10/25 06:56 History and Physical has been reviewed, including an updated exam of the patient. There are NO changes in the patient's condition. Risks, benefits, and alternatives have been discussed and questions answered. Patient agrees to proceed with procedure.
[2025-02-10] MEDS: ACETAMINOPHEN 500 MG TABLET 1000 MG PO (09:20)
[2025-02-10] MEDS: LACTATED RINGERS 1,000 ML 30 ML IV CONT ×2 (09:20→11:59)
[2025-02-10] MEDS: KETOROLAC 15 MG/ML VIAL (*BKC) IV PUSH (09:20)
[2025-02-10 09:40] LABS: Glucose Point of Care 91 mg/dl (65-105)
--- NOTE | 2025-02-10 09:47 | WPDANESEPPF ---
Anes - Initial Pre Proc Eval Procedure: Operation Date: 02/10/25 10:45 Proposed Procedures p Laparoscopic Bilateral Salpingectomy - Danilo Manriquez MD Date/Time: 02/10/25 09:47 Surgeon: Danilo Manriquez MD Pre Op Diagnosis: Desire Sterilization Patient Data Age: 39 Gender: F Height: 1.6 m Weight: 77.3 kg Allergies Allergy/AdvReac Type Severity Reaction Status Date / Time codeine Allergy Unknown Unknown Verified 02/07/25 11:46 Home Medications ?Medication ?Instructions ?Recorded ?Confirmed ?Type clobetasol 0.05 % scalp solution 1 applic topical DAILY 01/27/24 02/07/25 History spironolactone 100 mg tablet 100 mg PO DAILY 01/27/24 02/07/25 History tirzepatide 7.5 mg/0.5 mL 7.5 mg subcut WEEKLY 01/27/24 02/07/25 History subcutaneous pen injector (Mounjaro) norethindrone (contraceptive) 0.35 0.35 mg PO DAILY #84 tabs 12/30/24 02/07/25 Rx mg tablet Laboratory Tests 02/10/25 09:37 POC Capillary Glucose 91 mg/dl (65-105) Patient hx anesthesia problems: none Family hx anesthesia problems: none Results Review: All pre-operative results and documents have been reviewed as part of the pre-operative evaluation. [facility] Past Medical History Medical History Diabetes Vertigo H/O pre-eclampsia Gestational hypertension Chlamydia (~2009) Depression post History of environmental allergies Surgical History Surgical History History of hysteroscopy suction D&C missed AB History of bladder suspension procedure (~2021) History of tonsillectomy (~2006) History of gynecological procedure (03/24/14) nexplanon insertion History of gynecological procedure (12/23/16) nexplanon removal [place] teeth removed (10/08/17) Family History Family History Father Hypertension Family history of diabetes mellitus in first degree relative Diabetes mellitus Blood coagulation disorder Mother Hypertension H/O ovarian cancer Malignant tumor of pharynx Sibling Patient's sister is in good health Grandparent Family history of lupus erythematosus Other Family history of liver disease Social History Social History Smoking status: Never smoker Second hand tobacco smoke exposure: No Alcohol intake: current Alcohol use details: 1-2 a year Substance use: never Substance use type: does not use Do You Feel Safe in your Home?: Yes Lack of Transportation: No Lack of Food: Never True Current Housing: Decline to Answer Concerned About Future Housing: Decline to Answer Difficulty Paying Gas/Electric Bills: Decline to Answer Difficulty Paying for Meds: Decline to Answer Currently Unemployed: Decline to Answer Education: Decline to Answer Difficulty w/ Childcare or Family Care: Decline to Answer Living arrangements: with family Additional living arrangements comments: single Occupation/Education: occupation 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 Gender identity (if verbalized by the patient): Female Sexual Orientation (if Verbalized by the Patient): Straight or Heterosexual Spiritual care concerns: No Anes - Eval Final PreProcedure Day of Procedure 02/10/25 09:47 Patient weight: overweight Heart: regular rate and rhythm Lungs: clear to auscultation Airway: Mallampati scale class II Neurological: alert and oriented Last oral intake: >/= 8 hours ASA classification: II Emergent: no Anesthetic plan: proceed Anesthesia type and monitoring: general ETT and standard monitoring Results Review: All pre-operative results and documents have been reviewed as part of the pre-operative evaluation. Informed Consent: The patient's anesthetic plan and its attendant risks and benefits were discussed with the patient/family/POA. Questions were solicited and answers provided to the satisfaction of the patient/family/POA.
[2025-02-10] MEDS: SCOPOLAMINE 1 MG PATCH 1 PATCH TRANSDERM (09:50)
[2025-02-10 09:58] LABS: BEDSIDEPREGUCG Negative (Negative)
--- NOTE | 2025-02-10 10:35 | W.PM.PROC2 ---
Procedure Note - Detailed Date of Procedure 02/10/25 Pre-op Diagnosis Desire Sterilization Post-op Diagnosis Same Procedure Performed Laparoscopic bilateral salpingectomy Surgeon Danilo Manriquez MD Anesthesia General Findings Uterus tubes ovaries without abnormality Description of Procedure Patient prepped and draped usual this procedure. Cervical instruments placed for uterine mobility throughout case. Abdominal sites were then marked and trocars were placed under direct visualization. Normal uterus tubes and ovaries were noted. Using LigaSure instrument the mesial salpinx was cauterized and cut bilaterally with entirety of tubes removed. The right tube was removed in 2 pieces. Gas was allowed to escape incisions approximated using 4-0 Monocryl. Patient was sent to recovery room in stable condition. Estimated Blood Loss 10 Drains No Packing No Pathology Yes Complications No immediate complications Condition Stable Disposition PACU [facility] Billing Surgery - Charge Forward: Surgery Billing
[2025-02-10 10:42] LABS: Glucose Point of Care 96 mg/dl (65-105)
[2025-02-10] MEDS: ONDANSETRON INJ 4 MG/2 ML VIAL IV PUSH (11:21)
[2025-02-10] MEDS: diphenhydrAMINE HCl INJ 50 MG/ML VIAL 25 MG IV PUSH (11:56)
== END 2025-02-10 12:53 | disposition home or self-care (01) ==
PROVIDERS: PCP Internal Medicine; Visit Provider Obstetrics & Gynecology
PROC: (CPT 49320; principal; 2025-02-10 10:45)
DX: Z30.2 Encounter for sterilization (principal); E11.9 Type 2 diabetes mellitus without complications
CPT/HCPCS: 58661; 82948; 88302; A9270; J1100; J1200; J1885; J2250; J2270; J2405; J2704; J7120